=== PATIENT | female | born 1935 | race Two or more races ===

== ENCOUNTER 2016-09-24 10:33 | Inpatient (IN) | payer MEDICARE, OTHER ==
[2016-09-24] VITALS (7 sets, daily range): BP systolic 102–126; BP diastolic 43–75
[~2016-09-24] VITALS: Ht 162.6 cm; Wt 81.6 kg
[~2016-09-24 10:33] MED LIST: ACETAMINOPHEN120 MG ORAL; ALBUTEROL2.5 MG/3 M AD; LEVOFLOXACIN500 MG ORAL; MIRALAX17 G2 ORAL; MYLANTA II30 ML ORAL; PHENAZOPYRIDIN100 MG ORAL; PROTONIX40 MG ORAL; ZANTAC150 MG ORAL
[2016-09-24] MEDS ORDERED: Pantoprazole Inj IVP ONE (11:00)
[2016-09-24 11:18] LABS: BASOPHILS % (AUTO) 0.8 % (0.0-2.0); EOSINOPHILS % (AUTO) 0.1 % (0.0-3.0); LYMPHOCYTES % (AUTO) 12.9 % (20.0-45.0); MEAN CORPUSCULAR HEMOGLOBIN 24.2 PG (27.0-31.0); MEAN CORPUSCULAR HGB CONC 30.9 G/DL (32.0-36.0); MEAN CORPUSCULAR VOLUME 78 FL (80-99); MEAN PLATELET VOLUME 5.4 FL (6.5-10.1); MONOCYTES % (AUTO) 4.6 % (1.0-10.0); NEUTROPHILS % (AUTO) 81.6 % (45.0-75.0); PLATELET COUNT 522 K/UL (150-450); RED BLOOD COUNT 4.51 M/UL (4.20-5.40); RED CELL DISTRIBUTION WIDTH 16.7 % (11.6-14.8); WHITE BLOOD COUNT 17.1 K/UL (4.8-10.8)
--- NOTE | 2016-09-24 11:34 | Emergency Room Report ---
History of Present Illness General Chief Complaint: Vomiting Source: Patient, Family Member, Medical Record Present Illness HPI 81 YO F with known gastric ulcer? (scope 2-3 months ago) on PPI presents with alleged multiple episodes black emesis last night. Daughter states patient was vomiting dark substance. Tried to treat with OTC meds from pharmacy. No vomiting or coughing blood today. Denies diarrhea, abd pain, fever/chills. Patient has had URI symptoms recently. Patient currently asymptomatic, denies chest pain, SOB, abd pain, headache, urinary complaints. Allergies: Coded Allergies: PROCHLORPERAZINE (Verified Allergy, Severe, 02/20/16) Patient History Past Medical History: other - gastric ulcer Past Surgical History: none Pertinent Family History: none Social History: Denies: alcohol use, drug use, smoking Now: No Immunizations: UTD Reviewed Nursing Documentation: PMH: Agreed, PSxH: Agreed Nursing Documentation-PMH Hx Cardiac Problems: No Hx Hypertension: No Hx Pacemaker: No Hx Asthma: No Hx COPD: No Hx Diabetes: Yes Hx Cancer: No Hx Gastrointestinal Problems: Yes - pud Hx Dialysis: No History Of Psychiatric Problem: No Hx Neurological Problems: No Hx Cerebrovascular Accident: No Hx Seizures: No Review of Systems All Other Systems: negative except mentioned in HPI Physical Exam Vital Signs Date Time Temp Pulse Resp B/P Pulse Ox O2 Delivery O2 Flow Rate FiO2 09/24/16 10:34 98.1 98 16 104/70 98 Room Air Sp02 EP Interpretation: reviewed, normal General Appearance: normal inspection, well appearing, no apparent distress, alert, GCS 15, non-toxic Head: normocephalic, atraumatic Eyes: bilateral eye EOMI, bilateral eye PERRL ENT: normal ENT inspection, hearing grossly normal, normal voice Neck: normal inspection, full range of motion, supple, no bony tend Respiratory: normal inspection, chest non-tender, lungs clear, normal breath sounds, no rhonchi, no respiratory distress, no retraction, no accessory muscle use, no wheezing Cardiovascular #1: regular rate, rhythm, no edema Gastrointestinal: normal inspection, normal bowel sounds, non tender, soft, no guarding, no hernia, no rebound Genitourinary: no CVA tenderness Musculoskeletal: normal inspection, back normal, normal range of motion, Gris' s Sign negative Neurologic: normal inspection, alert, responsive, speech normal Psychiatric: normal inspection, judgement/insight normal, mood/affect normal Skin: normal inspection, normal color, no rash Procedures Critical Care Time Critical Care Time CC time 45 minutes Care for a 81 YO F with known gastric ulcer with ?upper GI bleed, black emesis yesterday DDx includes Perforation, gastric ulcer, PUD Patient is oriented, no active vomiting/coughing blood. VSS. Afebrile Comprehensive physical exam completed, atraumatic. Labs include CBC and chem panel, EKG 12 lead and constant cardiac rhythm strip monitoring, IV established wide bore, Coags, T&S, IV protononix Airway adequately maintained by patient upon arrival. EKG reveals NSR without QRS abnormalities. Physician spent 45 minutes of direct critical care time monitoring patient's respiratory, cardiac and neurological status, reassessment, review of imaging, labs and discussion with attending hospitalist, possible GI consult Does not include procedures Medical Decision Making Medicare Attestation I Amparo Wise MD hereby attest that the medical record entry for date of service, 08/10/16 accurately reflects signatures/notations that I made in my capacity as MD when I treated/diagnosed the above listed Medicare beneficiary. I attest that this information is true, accurate and complete to the best of my knowledge. I understand that any falsification, omission, or concealment of material fact may subject me to administrative, civil, or criminal liability. This patient warrants hospital admission for extreme of age and has a condition that cannot be treated as outpatient. Diagnostic Impression: Primary Impression: Coffee ground emesis Additional Impressions: UTI (urinary tract infection) Qualified Codes: N30.01 - Acute cystitis with hematuria Leukocytosis Qualified Codes: D72.829 - Elevated white blood cell count, unspecified ER Course 81 YO F with alleged coffee ground emesis last night, known gastric ulcer. VSS. Afebrile. No focal abd ttp in ED Labs: Elevated Leuks. H&H stable. UA + for UTI. No RAQUEL. Mild hypoK CXR: no PNA or acute abnormality A: 1) Upper GI bleed. No active bleeding now. H&H stable. IV protonix given. No history of ETOH or liver disease. Will likely need endoscopy although not urgent 2) Leuks, UTI. Tx with Zosyn for possible UTI Endorsed to Dr Strickland at 147pm for tele admission. EKG Diagnostic Results Rate: normal, other - arrythmia Rhythm: NSR ST Segments: no acute changes Rhythm Strip Diag. Results EP Interpretation: yes Rate: 96 Rhythm: NSR, no PVC's, no ectopy Chest X-Ray Diagnostic Results EP Interpretation: Yes Findings: no consolidation, no effusion, no pneumothorax, no acute cardiopulmonary disease Number of Views: 1 Last Vital Signs Date Time Temp Pulse Resp B/P Pulse Ox O2 Delivery O2 Flow Rate FiO2 09/24/16 10:34 98.1 98 16 104/70 98 Room Air Status: improved Disposition: ADMITTED INPATIENT Condition: Critical AMPARO WISE M.D. Sep 24, 2016 11:34
[2016-09-24 11:37] LABS: TROPONIN I < 0.30 ng/mL (<=0.30)
[2016-09-24 11:39] LABS: ALANINE AMINOTRANSFERASE 11 U/L (3-33); ALBUMIN/GLOBULIN RATIO 0.9 (1.0-2.7); ANION GAP 18 (5-15); ASPARTATE AMINO TRANSFERASE 16 U/L (5-40); CALCIUM 8.9 mg/dL (8.6-10.2); CARBON DIOXIDE 28 mEQ/L (20-30); CHLORIDE 86 mEQ/L (98-107); CREATININE 0.7 mg/dL (0.5-0.9); HEMOLYSIS 4; LIPASE 24 U/L (< 60); POTASSIUM 3.3 mEQ/L (3.4-4.9); SODIUM 132 mEQ/L (135-145); TOTAL PROTEIN 7.5 g/dL (6.6-8.7)
[2016-09-24] MEDS ORDERED: ZYRTEC10 MG ORAL (11:41)
[2016-09-24] MEDS ORDERED: GABAPENTIN600 MG ORAL (11:41)
[2016-09-24] MEDS ORDERED: HYDROXYZINE HCL10 M1 PO (11:41)
[2016-09-24] MEDS ORDERED: ASPIRIN81 MG ORAL (11:41)
[2016-09-24] MEDS ORDERED: PROCHLORPERAZINE5 MG ORAL (11:41)
[2016-09-24] MEDS ORDERED: CARAFATE1 G1 ORAL (11:41)
[2016-09-24] MEDS ORDERED: MUCINEX100 MG PO (11:41)
[2016-09-24] MEDS ORDERED: Piperacillin/Tazobactam 3.375 GM in NS 110 ML IVPB ONE (12:30)
[2016-09-24] MEDS ORDERED: Zosyn 3.375gm inj ONE (12:40)
[2016-09-24 12:43] LABS: APPEARANCE,URINE SLIGHTLY CLOUDY; KETONES,URINE NEGATIVE (NEGATIVE); LEUKOCYTE ESTERASE ,URINE 3+ (NEGATIVE); NITRITE,URINE NEGATIVE (NEGATIVE); PH,URINE 7 (4.5-8.0); PROTEIN,URINE 2+ (NEGATIVE); UROBILINOGEN,URINE NORMAL MG/DL (0.0-1.0)
[2016-09-24 13:02] LABS: INR 1.1 (0.9-1.1)
[2016-09-24 13:03] LABS: BACTERIA,URINE FEW /HPF; SQUAMOUS EPITHELIAL CELL,UR MODERATE /LPF (NONE/OCC)
--- NOTE | 2016-09-24 13:28 | Diagnostic Imaging Report ---
Indication: Chest Pain Comparison: 02/20/16 A single view chest radiograph was obtained. Findings: Heart is enlarged. Lungs are essentially clear. No infiltrate seen. Bones are osteopenic. Impression: Cardiomegaly. Stable appearance
[2016-09-24] MEDS ORDERED: D5 1/2NS 1,000 ML IV SCH (17:40)
[2016-09-24] MEDS ORDERED: Nitroglycerin Subl 0.4mg tab (Bottle Of 25) SL PRN (23:45)
[2016-09-24] MEDS ORDERED: Miralax 17gm pkt ORAL PRN (23:45)
[2016-09-24] MEDS ORDERED: Mylanta II UD 30ml ORAL PRN (23:45)
--- NOTE | 2016-09-24 23:49 | History and Physical ---
History of Present Illness General Reason for Hospitalization: Vomiting Present Illness HPI 81 year old bedbound, with hx of gastritis, presented with cc of vomiting blood on the day of admission. Patient had recent endoscopy showing showing gastric ulcer. But now she started vomiting blood. Allergies: Coded Allergies: PROCHLORPERAZINE (Verified Allergy, Severe, 02/20/16) Medication History Scheduled Aspirin* (Aspirin*), 81 MG ORAL DAILY, (Reported) Cetirizine Hcl* (Zyrtec*), 10 MG ORAL DAILY, (Reported) Gabapentin* (Gabapentin*), 600 MG ORAL DAILY, (Reported) Levofloxacin (Levofloxacin*), 500 MG ORAL DAILY, (Reported) Pantoprazole* (Protonix*), 40 MG ORAL DAILY Phenazopyridine Hcl* (Pyridium*), 100 MG ORAL THREE TIMES A DAY, (Reported) Prochlorperazine Maleate* (Compazine*), 5 MG ORAL Q6H, (Reported) Ranitidine Hcl* (Zantac*), 150 MG ORAL DAILY, (Reported) Sucralfate* (Carafate*), 1 GM ORAL FOUR TIMES A DAY, (Reported) Scheduled PRN Acetaminophen* (Tylenol*), 200 MG ORAL DAILY PRN for Mild Pain/Temp > 100.5, ( Reported) Al Hydroxide/mg Hydroxide (Mag-Al Plus Suspension), 30 ML ORAL Q6H PRN for dyspepsia Albuterol Sulfate* (Albuterol Sulfate Hhn*), 3 ML AD Q4H PRN for Shortness of Breath, (Reported) Polyethylene Glycol 3350* (Miralax*), 17 GM ORAL HSPRN PRN for Constipation Miscellaneous Medications Guaifenesin (Mucinex), Unknown Dose PO, (Reported) Hydroxyzine Hcl (Hydroxyzine Hcl), 10 MG PO, (Reported) Patient History Healthcare decision maker Resuscitation status Advanced Directive on File No Past Medical/Surgical History Past Medical/Surgical History: (1) GERD (gastroesophageal reflux disease) (2) Diverticulosis Review of Systems All Other Systems: negative except mentioned in HPI Physical Exam Lines, tubes and drains: peripheral HEENT: normocephalic, atraumatic Respiratory/Chest: chest wall non-tender, lungs clear Cardiovascular/Chest: normal peripheral pulses, normal rate Abdomen: normal bowel sounds Genitourinary/Rectal: normal genital exam Last 24 Hour Vital Signs Date Time Temp Pulse Resp B/P Pulse Ox O2 Delivery O2 Flow Rate FiO2 09/24/16 22:19 97.9 104 20 124/45 96 Room Air 09/24/16 21:31 98.8 91 20 123/59 97 Room Air 09/24/16 21:17 98.8 91 20 123/59 97 Room Air 09/24/16 19:10 99 18 120/55 100 Room Air 09/24/16 17:48 102 18 126/43 100 Room Air 09/24/16 15:11 102 14 102/75 98 Room Air 09/24/16 12:55 98.9 101 14 118/63 95 Room Air 09/24/16 11:32 98.1 97 22 102/57 99 Room Air 09/24/16 10:34 98.1 98 16 104/70 98 Room Air Laboratory Tests Test 09/24/16 10:35 09/24/16 12:25 09/24/16 12:44 White Blood Count 17.1 K/UL (4.8-10.8) H Red Blood Count 4.51 M/UL (4.20-5.40) Hemoglobin 10.9 G/DL (12.0-16.0) L Hematocrit 35.3 % (37.0-47.0) L Mean Corpuscular Volume 78 FL (80-99) L Mean Corpuscular Hemoglobin 24.2 PG (27.0-31.0) L Mean Corpuscular Hemoglobin Concent 30.9 G/DL (32.0-36.0) L Red Cell Distribution Width 16.7 % (11.6-14.8) H Platelet Count 522 K/UL (150-450) H Mean Platelet Volume 5.4 FL (6.5-10.1) L Neutrophils (%) (Auto) 81.6 % (45.0-75.0) H Lymphocytes (%) (Auto) 12.9 % (20.0-45.0) L Monocytes (%) (Auto) 4.6 % (1.0-10.0) Eosinophils (%) (Auto) 0.1 % (0.0-3.0) Basophils (%) (Auto) 0.8 % (0.0-2.0) Sodium Level 132 mEQ/L (135-145) L Potassium Level 3.3 mEQ/L (3.4-4.9) L Chloride Level 86 mEQ/L (98-107) L Carbon Dioxide Level 28 mEQ/L (20-30) Anion Gap 18 (5-15) H Blood Urea Nitrogen 21 mg/dL (7-23) Creatinine 0.7 mg/dL (0.5-0.9) Estimat Glomerular Filtration Rate mL/min (>60) Glucose Level 175 mg/dL (74-106) H Calcium Level 8.9 mg/dL (8.6-10.2) Total Bilirubin 0.4 mg/dL (0.0-1.2) Aspartate Amino Transf (AST/SGOT) 16 U/L (5-40) Alanine Aminotransferase (ALT/SGPT) 11 U/L (3-33) Alkaline Phosphatase 88 U/L (35-104) Troponin I < 0.30 ng/mL (<=0.30) Total Protein 7.5 g/dL (6.6-8.7) Albumin 3.7 g/dL (3.5-5.2) Globulin 3.8 g/dL Albumin/Globulin Ratio 0.9 (1.0-2.7) L Lipase 24 U/L (< 60) Urine Color Yellow Urine Appearance Slightly cloudy Urine pH 7 (4.5-8.0) Urine Specific [place] 1.005 (1.005-1.035) Urine Protein 2+ (NEGATIVE) H Urine Glucose (UA) 2+ (NEGATIVE) H Urine Ketones Negative (NEGATIVE) Urine Occult Blood 1+ (NEGATIVE) H Urine Nitrite Negative (NEGATIVE) Urine Bilirubin Negative (NEGATIVE) Urine Urobilinogen Normal MG/DL (0.0-1.0) Urine Leukocyte Esterase 3+ (NEGATIVE) H Urine RBC 2-4 /HPF (0 - 2) H Urine WBC 5-10 /HPF (0 - 2) H Urine Squamous Epithelial Cells Moderate /LPF (NONE/OCC) H Urine Bacteria Few /HPF (NONE) Prothrombin Time 11.0 SEC (9.30-11.50) Prothromb Time International Ratio 1.1 (0.9-1.1) Activated Partial Thromboplast Time 27 SEC (23-33) Height (Feet): 5 Height (Inches): 4.00 Weight (Pounds): 180 Medications Current Medications Medications (Trade) Dose Ordered Sig/Leroy Route PRN Reason Start Time Stop Time Status Last Admin Dose Admin Acetaminophen (Tylenol) 650 mg Q4H PRN ORAL fever 09/24/16 23:45 10/24/16 23:44 UNV Al Hydroxide/Mg Hydroxide (Mylanta II) 30 ml Q6H PRN ORAL dyspepsia 09/24/16 23:45 10/24/16 23:44 UNV Dextrose (Dextrose 50%) STAT PRN IV Hypoglycemia 09/24/16 23:45 10/24/16 23:44 UNV Dextrose/Sodium Chloride (D5 0.45% NS) 1,000 ml @ 75 mls/hr [id number] IV 09/24/16 17:40 10/24/16 17:39 UNV Diphenhydramine HCl (Benadryl) 25 mg Q6H PRN ORAL Itching/Pruritis 09/24/16 23:45 10/24/16 23:44 UNV Gabapentin 600 mg 600 mg DAILY ORAL 09/25/16 09:00 10/25/16 08:59 UNV Morphine Sulfate (Morphine Sulfate) 2 mg EVERY 4 HOURS PRN IVP severe Pain (Pain Scale 7-10) 09/24/16 23:45 10/01/16 23:44 UNV Nitroglycerin (Ntg) 0.4 mg Q5M X 3 DOSES PRN SL Prn Chest Pain 09/24/16 23:45 10/24/16 23:44 UNV Ondansetron HCl (Zofran) 4 mg Q6H PRN IVP Nausea & Vomiting 09/24/16 23:45 10/24/16 23:44 UNV Polyethylene Glycol (Miralax) 17 gm HSPRN PRN ORAL Constipation 09/24/16 23:45 10/24/16 23:44 UNV Temazepam (Restoril) 15 mg HSPRN PRN ORAL Insomnia 09/24/16 23:45 10/01/16 23:44 UNV Assessment/Plan Problem List: (1) Coffee ground emesis ICD Codes: K92.0 - Hematemesis SNOMED: 02581442 (2) UTI (urinary tract infection) ICD Codes: N39.0 - Urinary tract infection, site not specified SNOMED: 46027196, 463744026 Qualifiers: Qualified Codes: N30.01 - Acute cystitis with hematuria (3) Leukocytosis ICD Codes: D72.829 - Elevated white blood cell count, unspecified SNOMED: 030104183, 719022590 Qualifiers: Qualified Codes: D72.829 - Elevated white blood cell count, unspecified (4) Hiatal hernia ICD Codes: K44.9 - Diaphragmatic hernia without obstruction or gangrene SNOMED: 00787140 (5) GERD (gastroesophageal reflux disease) ICD Codes: K21.9 - Gastro-esophageal reflux disease without esophagitis SNOMED: 534609391 Assessment/Plan NPO IV fluids check H/h f/u coagulation check urine cultures telemetry for now. TERRANCE LLOYD Sep 24, 2016 23:49
[2016-09-25] VITALS (8 sets, daily range): BP systolic 102–134; BP diastolic 42–66
[2016-09-25 07:57] LABS: BASOPHILS % (AUTO) 0.9 % (0.0-2.0); EOSINOPHILS % (AUTO) 0.6 % (0.0-3.0); LYMPHOCYTES % (AUTO) 17.6 % (20.0-45.0); MEAN CORPUSCULAR HEMOGLOBIN 24.4 PG (27.0-31.0); MEAN CORPUSCULAR VOLUME 78 FL (80-99); MONOCYTES % (AUTO) 7.8 % (1.0-10.0); NEUTROPHILS % (AUTO) 73.1 % (45.0-75.0); PLATELET COUNT 422 K/UL (150-450); RED BLOOD COUNT 3.28 M/UL (4.20-5.40); WHITE BLOOD COUNT 11.6 K/UL (4.8-10.8)
[2016-09-25 08:06] LABS: ALANINE AMINOTRANSFERASE 9 U/L (3-33); ALBUMIN/GLOBULIN RATIO 0.9 (1.0-2.7); AMYLASE 41 U/L (10-110); ANION GAP 11 (5-15); ASPARTATE AMINO TRANSFERASE 14 U/L (5-40); CALCIUM 8.2 mg/dL (8.6-10.2); CARBON DIOXIDE 30 mEQ/L (20-30); CHLORIDE 97 mEQ/L (98-107); CREATININE 0.5 mg/dL (0.5-0.9); HEMOLYSIS 0; LIPASE 32 U/L (< 60); POTASSIUM 3.6 mEQ/L (3.4-4.9); SODIUM 138 mEQ/L (135-145); TOTAL PROTEIN 5.8 g/dL (6.6-8.7)
[2016-09-25 08:18] LABS: INR 1.1 (0.9-1.1); PROTHROMBIN TIME 11.3 SEC (9.30-11.50)
[2016-09-25] MEDS: Pantoprazole Inj IVP SCH ×2 (09:34→22:54)
--- NOTE | 2016-09-25 09:52 | Pre-Procedure Note/Attestation ---
Pre-Procedure Note/Attestation Complete Prior to Procedure Planned Procedure: not applicable Procedure Narrative: egd Indications for Procedure Pre-Operative Diagnosis: UGIB Attestation I attest that I discussed the nature of the procedure; its benefits; risks and complications; and alternatives (and the risks and benefits of such alternatives ), prior to the procedure, with the patient (or the patient's legal corporate representative). I attest that, if there was a reasonable possibility of needing a blood transfusion, the patient (or the patient's legal corporate representative) was given the [facility] standardized written summary, pursuant to the Nakul Dionicio Blood Safety Act ([place] Health and Safety Code # 1645, as amended). I attest that I re-evaluated the patient just prior to the surgery and that there has been no change in the patient's H&P, except as documented below: AURELIA CHATTERJEE Sep 25, 2016 09:52
[2016-09-25] MEDS ORDERED: NS 550ML IV ONE (10:20)
[2016-09-25] MEDS ORDERED: NS Irrig 1000ml ONE (10:30)
[2016-09-25] MEDS ORDERED: Propofol 10mg/ml 20ml IV ONE (10:30)
--- NOTE | 2016-09-25 10:45 | Anethesia Preoperative Eval ---
Anesthesia Pre-op PMH/ROS General Date of Evaluation: Sep 25, 2016 Time of Evaluation: 10:20 Anesthesiologist: queta ASA Score: ASA 3 Mallampati Score Class I : Soft palate, uvula, fauces, pillars visible Class II: Soft palate, uvula, fauces visible Class III: Soft palate, base of uvula visible Class IV: Only hard plate visible Mallampati Classification: Class II Surgeon: evelyn Diagnosis: GI bleed Surgical Procedure: egd Anesthesia History: none Allergies: Coded Allergies: PROCHLORPERAZINE (Verified Allergy, Severe, 02/20/16) Past Medical History Endocrine: Reports: DM HEENT: Reports: glaucoma Musculoskeletal/Integumentary: Reports: other - l. hip arthroplasty, contractures r. hand Anesthesia Pre-op Phys. Exam Physician Exam Last Vital Signs Date Time Temp Pulse Resp B/P Pulse Ox O2 Delivery O2 Flow Rate FiO2 09/25/16 08:00 77 09/25/16 07:56 98.1 18 103/52 97 Room Air Airway Exam Mallampati Score: Class II Teeth: missing Anesthesia Pre-op A/P Labs Hematology Test 09/24/16 10:35 09/25/16 06:20 White Blood Count 17.1 K/UL (4.8-10.8) H 11.6 K/UL (4.8-10.8) H Red Blood Count 4.51 M/UL (4.20-5.40) 3.28 M/UL (4.20-5.40) L Hemoglobin 10.9 G/DL (12.0-16.0) L 8.0 G/DL (12.0-16.0) L Hematocrit 35.3 % (37.0-47.0) L 25.7 % (37.0-47.0) L Mean Corpuscular Volume 78 FL (80-99) L 78 FL (80-99) L Mean Corpuscular Hemoglobin 24.2 PG (27.0-31.0) L 24.4 PG (27.0-31.0) L Mean Corpuscular Hemoglobin Concent 30.9 G/DL (32.0-36.0) L 31.0 G/DL (32.0-36.0) L Red Cell Distribution Width 16.7 % (11.6-14.8) H 17.0 % (11.6-14.8) H Platelet Count 522 K/UL (150-450) H 422 K/UL (150-450) Mean Platelet Volume 5.4 FL (6.5-10.1) L 6.0 FL (6.5-10.1) L Neutrophils (%) (Auto) 81.6 % (45.0-75.0) H 73.1 % (45.0-75.0) Lymphocytes (%) (Auto) 12.9 % (20.0-45.0) L 17.6 % (20.0-45.0) L Monocytes (%) (Auto) 4.6 % (1.0-10.0) 7.8 % (1.0-10.0) Eosinophils (%) (Auto) 0.1 % (0.0-3.0) 0.6 % (0.0-3.0) Basophils (%) (Auto) 0.8 % (0.0-2.0) 0.9 % (0.0-2.0) Coagulation Test 09/24/16 12:44 09/25/16 06:20 Prothrombin Time 11.0 SEC (9.30-11.50) 11.3 SEC (9.30-11.50) Prothromb Time International Ratio 1.1 (0.9-1.1) 1.1 (0.9-1.1) Activated Partial Thromboplast Time 27 SEC (23-33) 28 SEC (23-33) Chemistry Test 09/24/16 10:35 09/25/16 06:20 Sodium Level 132 mEQ/L (135-145) L 138 mEQ/L (135-145) Potassium Level 3.3 mEQ/L (3.4-4.9) L 3.6 mEQ/L (3.4-4.9) Chloride Level 86 mEQ/L (98-107) L 97 mEQ/L (98-107) L Carbon Dioxide Level 28 mEQ/L (20-30) 30 mEQ/L (20-30) Anion Gap 18 (5-15) H 11 (5-15) Blood Urea Nitrogen 21 mg/dL (7-23) 16 mg/dL (7-23) Creatinine 0.7 mg/dL (0.5-0.9) 0.5 mg/dL (0.5-0.9) Estimat Glomerular Filtration Rate mL/min (>60) mL/min (>60) Glucose Level 175 mg/dL (74-106) H 130 mg/dL (74-106) H Calcium Level 8.9 mg/dL (8.6-10.2) 8.2 mg/dL (8.6-10.2) L Total Bilirubin 0.4 mg/dL (0.0-1.2) 0.3 mg/dL (0.0-1.2) Aspartate Amino Transf (AST/SGOT) 16 U/L (5-40) 14 U/L (5-40) Alanine Aminotransferase (ALT/SGPT) 11 U/L (3-33) 9 U/L (3-33) Alkaline Phosphatase 88 U/L (35-104) 77 U/L (35-104) Troponin I < 0.30 ng/mL (<=0.30) Total Protein 7.5 g/dL (6.6-8.7) 5.8 g/dL (6.6-8.7) L Albumin 3.7 g/dL (3.5-5.2) 2.8 g/dL (3.5-5.2) L Globulin 3.8 g/dL 3.0 g/dL Albumin/Globulin Ratio 0.9 (1.0-2.7) L 0.9 (1.0-2.7) L Lipase 24 U/L (< 60) 32 U/L (< 60) Amylase Level 41 U/L (10-110) Risk Assessment & Plan Plan: propofol Status Change Before Surgery: Nic Manjarrez MD Sep 25, 2016 10:45
--- NOTE | 2016-09-25 10:47 | Immediate Post-Op Evaluation ---
Immediate Post-Op Evalulation Immediate Post-Op Evalulation Date of Evaluation: Sep 25, 2016 Time of Evaluation: 11:00 IV Fluids: 300 Blood Pressure Systolic: 127 Blood Pressure Diastolic: 75 Pulse Rate: 76 Respiratory Rate: 20 O2 Sat by Pulse Oximetry: 100 Temperature (Fahrenheit): 97.3 Pain Score (1-10): 0 Nausea: No Vomiting: No Complications none Patient Status: awake, patent, none Hydration Status: adequate Nic Venegas MD Sep 25, 2016 10:47
--- NOTE | 2016-09-25 10:48 | 48 Hour Post Anesthesia Eval ---
Post Anesthesia Evaluation Date of Evaluation: Sep 25, 2016 Time of Evaluation: 11:10 Blood Pressure Systolic: 110 0: 60 Pulse Rate: 81 Respiratory Rate: 19 Temperature (Fahrenheit): 97.1 O2 Sat by Pulse Oximetry: 99 Airway: patent Nausea: No Vomiting: No Pain Intensity: 0 Hydration Status: adequate Cardiopulmonary Status: stable Mental Status/LOC: patient returned to baseline Follow-up Care/Observations: n/a Post-Anesthesia Complications: tolerated well Follow-up care needed: N/A Nic Venegas MD Sep 25, 2016 10:48
--- NOTE | 2016-09-25 10:51 | Endoscopy Procedure Note ---
Endoscopy Procedure Note Indication for Procedure: gib Procedures Performed: EGD Operative Findings/Diagnosis: esophagitis Specimen: yes Pt Tolerated Procedure Well: Yes Estimated Blood Loss: none Anesthesiologist: queta Anesthesia: MAC Implant(s) used?: No 50 yrs or older w/o bx or poly: Not Applicable 10yrs. F/U not recommended: Not Applicable AURELIA CHATTERJEE Sep 25, 2016 10:51
[2016-09-25] MEDS: Morphine Sulfate 2mg/ml Inj IVP PRN ×3 (12:21→22:54)
--- NOTE | 2016-09-25 15:10 | Pulmonology Progress Note ---
Assessment/Plan Problems: (1) Coffee ground emesis (2) UTI (urinary tract infection) (3) Leukocytosis (4) Hiatal hernia (5) GERD (gastroesophageal reflux disease) Assessment/Plan h/h dropping, transfuse prbc endoscopy results reviewed with Dr. Eugene geiger [facility] check urine cultures. Subjective ROS Limited/Unobtainable: No Constitutional: Reports: no symptoms HEENT: Repors: no symptoms Respiratory: Reports: no symptoms Cardiovascular: Reports: no symptoms Allergies: Coded Allergies: PROCHLORPERAZINE (Verified Allergy, Severe, 02/20/16) Objective Last 24 Hour Vital Signs Date Time Temp Pulse Resp B/P Pulse Ox O2 Delivery O2 Flow Rate FiO2 09/25/16 12:01 81 19 99 09/25/16 11:07 97.4 81 19 110/62 99 Nasal Cannula 3.0 09/25/16 11:00 80 20 115/65 99 Nasal Cannula 3.0 09/25/16 10:59 76 20 100 09/25/16 10:55 97.3 82 17 118/66 98 Nasal Cannula 3.0 09/25/16 08:00 77 09/25/16 07:56 98.1 82 18 103/52 97 Room Air 09/25/16 04:10 98.6 87 20 102/42 95 Room Air 09/25/16 03:59 92 09/25/16 01:07 98.8 96 20 127/53 95 Room Air 09/25/16 00:04 93 09/24/16 22:19 97.9 104 20 124/45 96 Room Air 09/24/16 21:31 98.8 91 20 123/59 97 Room Air 09/24/16 21:17 98.8 91 20 123/59 97 Room Air 09/24/16 19:10 99 18 120/55 100 Room Air 09/24/16 17:48 102 18 126/43 100 Room Air 09/24/16 15:11 102 14 102/75 98 Room Air Intake and Output 09/24/16 09/25/16 19:00 07:00 Intake Total 0 ml 525 ml Balance 0 ml 525 ml Intake Oral 0 ml IV Total 525 ml # Bowel Movements 2 General Appearance: WD/WN HEENT: normocephalic, atraumatic Respiratory/Chest: chest wall non-tender, normal breath sounds Cardiovascular: normal peripheral pulses, normal rate Abdomen: normal bowel sounds, soft, non tender Skin: no rash Neurologic/Psychiatric: no motor/sensory deficits Laboratory Tests 09/25/16 06:20: White Blood Count 11.6H, Red Blood Count 3.28L, Hemoglobin 8.0L, Hematocrit 25.7L, Mean Corpuscular Volume 78L, Mean Corpuscular Hemoglobin 24.4L, Mean Corpuscular Hemoglobin Concent 31.0L, Red Cell Distribution Width 17.0H, Platelet Count 422, Mean Platelet Volume 6.0L, Neutrophils (%) (Auto) 73.1, Lymphocytes (%) (Auto) 17.6L, Monocytes (%) (Auto) 7.8, Eosinophils (%) (Auto) 0.6, Basophils (%) (Auto) 0.9, Prothrombin Time 11.3, Prothromb Time International Ratio 1.1, Activated Partial Thromboplast Time 28, Sodium Level 138, Potassium Level 3.6, Chloride Level 97L, Carbon Dioxide Level 30, Anion Gap 11, Blood Urea Nitrogen 16, Creatinine 0.5, Estimat Glomerular Filtration Rate , Glucose Level 130H, Calcium Level 8.2L, Total Bilirubin 0.3, Aspartate Amino Transf (AST/SGOT) 14, Alanine Aminotransferase (ALT/SGPT) 9, Alkaline Phosphatase 77, Total Protein 5.8L, Albumin 2.8L, Globulin 3.0, Albumin/ Globulin Ratio 0.9L, Amylase Level 41, Lipase 32 Current Medications Medications (Trade) Dose Ordered Sig/Leroy Route PRN Reason Start Time Stop Time Status Last Admin Dose Admin Acetaminophen (Tylenol) 650 mg Q4H PRN ORAL fever 09/24/16 23:45 10/24/16 23:44 Al Hydroxide/Mg Hydroxide (Mylanta II) 30 ml Q6H PRN ORAL dyspepsia 09/24/16 23:45 10/24/16 23:44 Dextrose (Dextrose 50%) STAT PRN IV Hypoglycemia 09/24/16 23:45 10/24/16 23:44 Dextrose/ Electrolytes (D5NS W/KCl 20meq 1000ml) 1,000 ml @ 75 mls/hr [id number] IV 09/25/16 01:00 10/25/16 00:59 09/25/16 04:20 Diphenhydramine HCl (Benadryl) 25 mg Q6H PRN ORAL Itching/Pruritis 09/24/16 23:45 10/24/16 23:44 09/25/16 12:21 Morphine Sulfate (Morphine Sulfate) 2 mg Q4H PRN IVP severe Pain (Pain Scale 7-10) 09/24/16 23:45 10/01/16 23:44 09/25/16 12:21 Nitroglycerin (Ntg) 0.4 mg Q5M X 3 DOSES PRN SL Prn Chest Pain 09/24/16 23:45 10/24/16 23:44 Ondansetron HCl (Zofran) 4 mg Q6H PRN IVP Nausea & Vomiting 09/24/16 23:45 10/24/16 23:44 Pantoprazole 40 mg 40 mg EVERY 12 HOURS IVP 09/25/16 09:00 10/25/16 08:59 09/25/16 09:34 Polyethylene Glycol (Miralax) 17 gm HSPRN PRN ORAL Constipation 09/24/16 23:45 10/24/16 23:44 Temazepam (Restoril) 15 mg HSPRN PRN ORAL Insomnia 09/24/16 23:45 10/01/16 23:44 TERRANCE LLOYD Sep 25, 2016 15:10
--- NOTE | 2016-09-25 18:37 | Procedure Note ---
DATE OF PROCEDURE: 09/25/2016 SURGEON: Shaun Quesada M.D. PROCEDURE: Upper endoscopy with biopsy. ANESTHESIOLOGIST: Nic Venegas M.D. INSTRUMENT: Olympus adult flexible upper endoscope. INDICATION: Upper gastrointestinal bleeding. REASON FOR PROCEDURE: The procedure, risks, benefits, and possible consequences, including hemorrhage, aspiration, perforation and infection, and alternative treatments, were explained to the patient/legal guardian by Dr. Shaun Quesada and the patient/legal guardian understood and accepted these risks. DESCRIPTION OF PROCEDURE: After informed consent was obtained and the patient was adequately sedated, Olympus upper endoscope was advanced from mouth into the second portion of the duodenum and retroflexion was performed in the stomach. The patient has evidence of distal esophagitis. Biopsies from distal esophagus was obtained. In the stomach, there was diffuse gastritis. No obvious ulceration or obvious upper gastrointestinal bleeding. The patient tolerated the procedure without any complication. SUMMARY OF FINDINGS: Distal esophagitis status post biopsy. Otherwise, basically normal upper endoscopy examination. RECOMMENDATIONS: Follow up biopsies and treat accordingly. I want to thank, Dr. Strickland, for this kind referral. Shaun Quesada M.D. DR: VARUN JOB#: [id number] CC: Roberto Strickland M.D.
[2016-09-26] VITALS (7 sets, daily range): BP systolic 110–145; BP diastolic 43–76
[2016-09-26] MEDS: Morphine Sulfate 2mg/ml Inj IVP PRN ×2 (05:02→20:15)
--- NOTE | 2016-09-26 07:25 | Pulmonology Progress Note ---
Assessment/Plan Assessment/Plan ASSESSMENT upper GI bleeding pyuria, possible UTI anemia s/p EGD esophagitis , s/p bx PLAN OF CARE IVF s/p EGD with findings of esophagitis, biopsy results pending GI follows monitor HH , trending down patient declined blood transfusion GI prophylaxis advance diet as tolerated antiemetic prn per GI colonoscopy on Wednesday CXR negative O2 HHN prn case discussed and evaluated by supervising physician Subjective Allergies: Coded Allergies: PROCHLORPERAZINE (Verified Allergy, Severe, 02/20/16) Subjective afebrile, leukocytosis resolved HH trending down no SOB, no signs of respiratory distress Objective Last 24 Hour Vital Signs Date Time Temp Pulse Resp B/P Pulse Ox O2 Delivery O2 Flow Rate FiO2 09/26/16 04:00 98.0 76 20 117/56 98 Room Air 09/26/16 04:00 82 09/26/16 00:00 98.2 84 20 122/58 96 Room Air 09/26/16 00:00 84 09/25/16 23:24 97.5 09/25/16 20:00 82 09/25/16 20:00 97.5 83 18 134/56 98 Room Air 09/25/16 16:00 98.6 84 16 119/55 98 Room Air 09/25/16 16:00 79 09/25/16 12:01 81 19 99 09/25/16 11:07 97.4 81 19 110/62 99 Nasal Cannula 3.0 09/25/16 11:00 80 20 115/65 99 Nasal Cannula 3.0 09/25/16 10:59 76 20 100 09/25/16 10:55 97.3 82 17 118/66 98 Nasal Cannula 3.0 09/25/16 08:00 77 09/25/16 07:56 98.1 82 18 103/52 97 Room Air Intake and Output 09/25/16 09/26/16 19:00 07:00 Intake Total 1050 ml 613 ml Output Total 0 ml Balance 1050 ml 613 ml Intake Oral 250 ml 240 ml IV Total 800 ml 373 ml Output Estimated Blood Loss 0 ml # Voids 4 General Appearance: no acute distress HEENT: normocephalic, atraumatic, anicteric, mucous membranes moist Respiratory/Chest: lungs clear, no respiratory distress, no accessory muscle use Cardiovascular: normal rate, no gallop/murmur, no JVD Abdomen: normal bowel sounds, soft, non tender, non distended Genitourinary: normal external genitalia Extremities: no edema, pedal pulses normal Neurologic/Psychiatric: no motor/sensory deficits, alert, responsive, normal mood/affect Current Medications Medications (Trade) Dose Ordered Sig/Leroy Route PRN Reason Start Time Stop Time Status Last Admin Dose Admin Acetaminophen (Tylenol) 650 mg Q4H PRN ORAL fever 09/24/16 23:45 10/24/16 23:44 Al Hydroxide/Mg Hydroxide (Mylanta II) 30 ml Q6H PRN ORAL dyspepsia 09/24/16 23:45 10/24/16 23:44 Dextrose (Dextrose 50%) STAT PRN IV Hypoglycemia 09/24/16 23:45 10/24/16 23:44 Dextrose/ Electrolytes (D5NS W/KCl 20meq 1000ml) 1,000 ml @ 75 mls/hr [id number] IV 09/25/16 01:00 10/25/16 00:59 09/26/16 03:50 Diphenhydramine HCl (Benadryl) 25 mg Q6H PRN ORAL Itching/Pruritis 09/24/16 23:45 10/24/16 23:44 09/25/16 12:21 Morphine Sulfate (Morphine Sulfate) 2 mg Q4H PRN IVP severe Pain (Pain Scale 7-10) 09/24/16 23:45 10/01/16 23:44 09/26/16 05:02 Nitroglycerin (Ntg) 0.4 mg Q5M X 3 DOSES PRN SL Prn Chest Pain 09/24/16 23:45 10/24/16 23:44 Ondansetron HCl (Zofran) 4 mg Q6H PRN IVP Nausea & Vomiting 09/24/16 23:45 10/24/16 23:44 Pantoprazole 40 mg 40 mg EVERY 12 HOURS IVP 09/25/16 09:00 10/25/16 08:59 09/25/16 22:54 Polyethylene Glycol (Miralax) 17 gm HSPRN PRN ORAL Constipation 09/24/16 23:45 10/24/16 23:44 Temazepam (Restoril) 15 mg HSPRN PRN ORAL Insomnia 09/24/16 23:45 10/01/16 23:44 09/26/16 00:58 Pratik ([facility])Jessi NP Sep 26, 2016 07:25
[2016-09-26] MEDS ORDERED: DuoNeb 0.5-3(2.5)mg/3ml neb HHN PRN (07:30)
--- NOTE | 2016-09-26 08:07 | General Progress Note ---
Assessment/Plan Problem List: (1) Hiatal hernia ICD Codes: K44.9 - Diaphragmatic hernia without obstruction or gangrene SNOMED: 49350356 (2) GERD (gastroesophageal reflux disease) ICD Codes: K21.9 - Gastro-esophageal reflux disease without esophagitis SNOMED: 191807131 (3) Diverticulosis ICD Codes: K57.90 - Diverticulosis of intestine, part unspecified, without perforation or abscess without bleeding SNOMED: 076991137 (4) Esophagitis ICD Codes: K20.9 - Esophagitis, unspecified SNOMED: 48485165 Assessment/Plan ppi fu H&H reflux meaures fu biopsy results +/- colonoscopy on Wednesday if needed Subjective ROS Limited/Unobtainable: Yes Allergies: Coded Allergies: PROCHLORPERAZINE (Verified Allergy, Severe, 02/20/16) Subjective no N/V no abd pain Objective Last 24 Hour Vital Signs Date Time Temp Pulse Resp B/P Pulse Ox O2 Delivery O2 Flow Rate FiO2 09/26/16 04:00 98.0 76 20 117/56 98 Room Air 09/26/16 04:00 82 09/26/16 00:00 98.2 84 20 122/58 96 Room Air 09/26/16 00:00 84 09/25/16 23:24 97.5 09/25/16 20:00 82 09/25/16 20:00 97.5 83 18 134/56 98 Room Air 09/25/16 16:00 98.6 84 16 119/55 98 Room Air 09/25/16 16:00 79 09/25/16 12:01 81 19 99 09/25/16 11:07 97.4 81 19 110/62 99 Nasal Cannula 3.0 09/25/16 11:00 80 20 115/65 99 Nasal Cannula 3.0 09/25/16 10:59 76 20 100 09/25/16 10:55 97.3 82 17 118/66 98 Nasal Cannula 3.0 Intake and Output 09/25/16 09/26/16 19:00 07:00 Intake Total 1050 ml 613 ml Output Total 0 ml Balance 1050 ml 613 ml Intake Oral 250 ml 240 ml IV Total 800 ml 373 ml Output Estimated Blood Loss 0 ml # Voids 4 Laboratory Tests 09/26/16 07:05: White Blood Count [Pending], Red Blood Count [Pending], Hemoglobin [Pending], Hematocrit [Pending], Mean Corpuscular Volume [Pending], Mean Corpuscular Hemoglobin [Pending], Mean Corpuscular Hemoglobin Concent [Pending], Red Cell Distribution Width [Pending], Platelet Count [Pending], Mean Platelet Volume [ Pending], Neutrophils (%) (Auto) [Pending], Lymphocytes (%) (Auto) [Pending], Monocytes (%) (Auto) [Pending], Eosinophils (%) (Auto) [Pending], Basophils (%) (Auto) [Pending], Prothrombin Time [Pending], Prothromb Time International Ratio [Pending], Activated Partial Thromboplast Time [Pending], Sodium Level [ Pending], Potassium Level [Pending], Chloride Level [Pending], Carbon Dioxide Level [Pending], Blood Urea Nitrogen [Pending], Creatinine [Pending], Estimat Glomerular Filtration Rate [Pending], Glucose Level [Pending], Calcium Level [ Pending], Phosphorus Level [Pending], Magnesium Level [Pending], Total Bilirubin [Pending], Aspartate Amino Transf (AST/SGOT) [Pending], Alanine Aminotransferase (ALT/SGPT) [Pending], Alkaline Phosphatase [Pending], Total Protein [Pending], Albumin [Pending], Globulin [Pending] Height (Feet): 5 Height (Inches): 4.00 Weight (Pounds): 180 General Appearance: alert EENT: normal ENT inspection Neck: supple Cardiovascular: normal rate Respiratory/Chest: decreased breath sounds Abdomen: normal bowel sounds, non tender, soft Extremities: non-tender AURELIA CHATTERJEE Sep 26, 2016 08:07
[2016-09-26 08:23] LABS: ALANINE AMINOTRANSFERASE 9 U/L (3-33); ANION GAP 9 (5-15); ASPARTATE AMINO TRANSFERASE 14 U/L (5-40); CALCIUM 7.7 mg/dL (8.6-10.2); CARBON DIOXIDE 31 mEQ/L (20-30); CHLORIDE 97 mEQ/L (98-107); CREATININE 0.4 mg/dL (0.5-0.9); HEMOLYSIS 0; MAGNESIUM 2.1 mg/dL (1.7-2.5); PHOSPHORUS 2.6 mg/dL (2.5-4.8); POTASSIUM 3.4 mEQ/L (3.4-4.9); SODIUM 137 mEQ/L (135-145); TOTAL PROTEIN 5.8 g/dL (6.6-8.7)
[2016-09-26] MEDS: Pantoprazole Inj IVP SCH ×2 (08:33→20:07)
[2016-09-26 08:50] LABS: MEAN CORPUSCULAR HEMOGLOBIN 24.5 PG (27.0-31.0); MEAN CORPUSCULAR HGB CONC 29.9 G/DL (32.0-36.0); MEAN CORPUSCULAR VOLUME 82 FL (80-99); MEAN PLATELET VOLUME 5.8 FL (6.5-10.1); PLATELET COUNT 359 K/UL (150-450); RED BLOOD COUNT 2.93 M/UL (4.20-5.40); RED CELL DISTRIBUTION WIDTH 17.1 % (11.6-14.8); WHITE BLOOD COUNT 7.5 K/UL (4.8-10.8)
[2016-09-26 09:17] LABS: INR 1.1 (0.9-1.1); PROTHROMBIN TIME 11.2 SEC (9.30-11.50)
[2016-09-26] MEDS ORDERED: Promethazine/Codeine 5ml UD ORAL PRN (11:45)
[2016-09-26 11:57] LABS: BAND NEUTROPHILS % (MANUAL) 2 % (0-8); EOSINOPHILS % (MANUAL) 8 % (0-3); LYMPHOCYTES % (MANUAL) 16 % (20-45); NEUTROPHILS % (MANUAL) 63 % (45-75); TOTAL CELLS COUNTED 100
[2016-09-26 11:58] LABS: ACANTHOCYTES OCCASIONAL; ANISOCYTOSIS 2+; BASOPHILS % (MANUAL) 0 % (0-2); HYPOCHROMASIA 1+; MICROCYTES 1+; PLATELET ESTIMATE ADEQUATE; PLATELET MORPHOLOGY NORMAL
[2016-09-26] MEDS ORDERED: Epogen (for non ESRD use) SUBQ SCH ×2 (20:00→21:00)
[2016-09-27] VITALS: BP 122/59
[2016-09-27] MEDS: Morphine Sulfate 2mg/ml Inj IVP PRN ×2 (03:27→16:39)
[2016-09-27 04:00] VITALS: BP 123/54
[2016-09-27 08:00] VITALS: BP 131/60
[2016-09-27] MEDS: Pantoprazole Inj IVP SCH ×2 (08:50→21:35)
--- NOTE | 2016-09-27 09:28 | General Progress Note ---
Assessment/Plan Problem List: (1) Hiatal hernia ICD Codes: K44.9 - Diaphragmatic hernia without obstruction or gangrene SNOMED: 45572032 (2) GERD (gastroesophageal reflux disease) ICD Codes: K21.9 - Gastro-esophageal reflux disease without esophagitis SNOMED: 508002855 (3) Diverticulosis ICD Codes: K57.90 - Diverticulosis of intestine, part unspecified, without perforation or abscess without bleeding SNOMED: 112704410 (4) Esophagitis ICD Codes: K20.9 - Esophagitis, unspecified SNOMED: 63302558 Assessment/Plan ppi fu H&H reflux measures fu biopsy results +/- colonoscopy if needed Subjective ROS Limited/Unobtainable: Yes Allergies: Coded Allergies: PROCHLORPERAZINE (Verified Allergy, Severe, 02/20/16) Subjective no N/V no abd pain Objective Last 24 Hour Vital Signs Date Time Temp Pulse Resp B/P Pulse Ox O2 Delivery O2 Flow Rate FiO2 09/27/16 08:05 86 18 Nasal Cannula 2.0 28 09/27/16 08:00 98.1 84 20 131/60 95 Room Air 09/27/16 04:00 97.6 87 20 123/54 95 Nasal Cannula 2.0 09/27/16 03:46 84 09/27/16 00:00 97.0 96 20 122/59 96 Nasal Cannula 2.0 09/26/16 22:00 96 110/43 09/26/16 20:00 99.7 99 20 145/71 95 Room Air 09/26/16 19:54 96 09/26/16 16:00 96 09/26/16 16:00 97.6 95 20 134/65 97 Nasal Cannula 2.0 09/26/16 12:00 98.2 86 20 138/76 98 Room Air 09/26/16 12:00 89 Intake and Output 09/26/16 09/27/16 19:00 07:00 Intake Total 795 ml 900 ml Balance 795 ml 900 ml Intake Oral 120 ml IV Total 675 ml 900 ml # Voids 1 # Bowel Movements 1 Laboratory Tests 09/27/16 03:20: White Blood Count [Pending], Red Blood Count [Pending], Hemoglobin [Pending], Hematocrit [Pending], Mean Corpuscular Volume [Pending], Mean Corpuscular Hemoglobin [Pending], Mean Corpuscular Hemoglobin Concent [Pending], Red Cell Distribution Width [Pending], Platelet Count [Pending], Mean Platelet Volume [ Pending], Neutrophils (%) (Auto) [Pending], Lymphocytes (%) (Auto) [Pending], Monocytes (%) (Auto) [Pending], Eosinophils (%) (Auto) [Pending], Basophils (%) (Auto) [Pending], Sodium Level [Pending], Potassium Level [Pending], Chloride Level [Pending], Carbon Dioxide Level [Pending], Blood Urea Nitrogen [Pending], Creatinine [Pending], Estimat Glomerular Filtration Rate [Pending], Glucose Level [Pending], Calcium Level [Pending] Height (Feet): 5 Height (Inches): 4.00 Weight (Pounds): 180 General Appearance: alert EENT: normal ENT inspection Neck: supple Cardiovascular: normal rate Respiratory/Chest: lungs clear Abdomen: normal bowel sounds, non tender, soft Extremities: non-tender AURELIA CHATTERJEE Sep 27, 2016 09:28
--- NOTE | 2016-09-27 11:46 | Cardiology Report ---
APPROVED REPORT EKG Measurement Heart [id number] 118P12 [id number] Normal sinus rhythm with sinus arrhythmia Right superior axis deviation Nonspecific intraventricular conduction delay Abnormal ECG
[2016-09-27 12:00] VITALS: BP 130/57
--- NOTE | 2016-09-27 14:09 | Pulmonology Progress Note ---
Assessment/Plan Assessment/Plan ASSESSMENT upper GI bleeding pyuria, possible UTI anemia s/p EGD esophagitis , s/p bx PLAN OF CARE IVF s/p EGD with findings of esophagitis, biopsy results pending GI follows monitor HH , trending down patient declined blood transfusion GI prophylaxis advance diet as tolerated antiemetic prn per GI colonoscopy on Wednesday CXR negative O2 HHN prn no labs today explained to DPOA (daughter of the patient) need for transfusion daughter declined blood transfusion and labs for today she is aware that her mother is on EPO and believes that Hgb will build up, wants to wait till am CBC transfer to [facility] floor case discussed and evaluated by supervising physician Subjective Allergies: Coded Allergies: PROCHLORPERAZINE (Verified Allergy, Severe, 02/20/16) Subjective afebrile, leukocytosis resolved HH trending down no SOB, no signs of respiratory distress Objective Last 24 Hour Vital Signs Date Time Temp Pulse Resp B/P Pulse Ox O2 Delivery O2 Flow Rate FiO2 09/27/16 12:00 98.5 85 20 130/57 95 Room Air 2.0 09/27/16 08:05 86 18 Nasal Cannula 2.0 28 09/27/16 08:00 84 09/27/16 08:00 98.1 84 20 131/60 95 Room Air 09/27/16 04:00 97.6 87 20 123/54 95 Nasal Cannula 2.0 09/27/16 03:46 84 09/27/16 00:00 97.0 96 20 122/59 96 Nasal Cannula 2.0 09/26/16 22:00 96 110/43 09/26/16 20:00 99.7 99 20 145/71 95 Room Air 09/26/16 19:54 96 09/26/16 16:00 96 09/26/16 16:00 97.6 95 20 134/65 97 Nasal Cannula 2.0 Intake and Output 09/26/16 09/27/16 18:59 06:59 Intake Total 795 ml 975 ml Balance 795 ml 975 ml Intake Oral 120 ml IV Total 675 ml 975 ml # Voids 1 # Bowel Movements 1 Objective General Appearance: no acute distress HEENT: normocephalic, atraumatic, anicteric, mucous membranes moist Respiratory/Chest: lungs clear, no respiratory distress, no accessory muscle use Cardiovascular: normal rate, no gallop/murmur, no JVD Abdomen: normal bowel sounds, soft, non tender, non distended Genitourinary: normal external genitalia Extremities: no edema, pedal pulses normal Neurologic/Psychiatric: no motor/sensory deficits, alert, responsive, normal mood/affect Laboratory Tests 09/27/16 03:20: White Blood Count [Pending], Red Blood Count [Pending], Hemoglobin [Pending], Hematocrit [Pending], Mean Corpuscular Volume [Pending], Mean Corpuscular Hemoglobin [Pending], Mean Corpuscular Hemoglobin Concent [Pending], Red Cell Distribution Width [Pending], Platelet Count [Pending], Mean Platelet Volume [ Pending], Neutrophils (%) (Auto) [Pending], Lymphocytes (%) (Auto) [Pending], Monocytes (%) (Auto) [Pending], Eosinophils (%) (Auto) [Pending], Basophils (%) (Auto) [Pending], Sodium Level [Pending], Potassium Level [Pending], Chloride Level [Pending], Carbon Dioxide Level [Pending], Blood Urea Nitrogen [Pending], Creatinine [Pending], Estimat Glomerular Filtration Rate [Pending], Glucose Level [Pending], Calcium Level [Pending] Current Medications Medications (Trade) Dose Ordered Sig/Leroy Route PRN Reason Start Time Stop Time Status Last Admin Dose Admin Acetaminophen (Tylenol) 650 mg Q4H PRN ORAL fever 09/24/16 23:45 10/24/16 23:44 Al Hydroxide/Mg Hydroxide (Mylanta II) 30 ml Q6H PRN ORAL dyspepsia 09/24/16 23:45 10/24/16 23:44 Albuterol/ Ipratropium (DuoNeb 0.5-3(2.5)mg/3ml) 3 ml Q4H PRN HHN Shortness of Breath 09/26/16 07:30 10/01/16 07:29 Dextrose (Dextrose 50%) STAT PRN IV Hypoglycemia 09/24/16 23:45 10/24/16 23:44 Dextrose/ Electrolytes (D5NS W/KCl 20meq 1000ml) 1,000 ml @ 75 mls/hr [id number] IV 09/25/16 01:00 10/25/16 00:59 09/27/16 06:34 Diphenhydramine HCl (Benadryl) 25 mg Q6H PRN ORAL Itching/Pruritis 09/24/16 23:45 10/24/16 23:44 09/25/16 12:21 Epoetin Bassam (Procrit (for non ESRD use)) 10,000 units WED-WED-WED SUBQ 09/26/16 21:00 10/26/16 20:59 09/26/16 22:02 Morphine Sulfate (Morphine Sulfate) 2 mg Q4H PRN IVP severe Pain (Pain Scale 7-10) 09/24/16 23:45 10/01/16 23:44 09/27/16 03:27 Nitroglycerin (Ntg) 0.4 mg Q5M X 3 DOSES PRN SL Prn Chest Pain 09/24/16 23:45 10/24/16 23:44 Ondansetron HCl (Zofran) 4 mg Q6H PRN IVP Nausea & Vomiting 09/24/16 23:45 10/24/16 23:44 Pantoprazole 40 mg 40 mg EVERY 12 HOURS IVP 09/25/16 09:00 10/25/16 08:59 09/27/16 08:50 Polyethylene Glycol (Miralax) 17 gm HSPRN PRN ORAL Constipation 09/24/16 23:45 10/24/16 23:44 09/26/16 12:15 Promethazine HCl/ Codeine (Phenergan with Codeine) 5 ml Q6H PRN ORAL For Cough 09/26/16 11:45 10/26/16 11:44 09/26/16 14:04 Temazepam (Restoril) 15 mg HSPRN PRN ORAL Insomnia 09/24/16 23:45 10/01/16 23:44 09/26/16 00:58 [facility]Jessi NP Sep 27, 2016 14:09
[2016-09-27 16:00] VITALS: BP 128/54
[2016-09-27 20:00] VITALS: BP 120/55
[2016-09-28] VITALS: BP 142/67
[2016-09-28] MEDS ORDERED: Nitroglycerin Subl 0.4mg tab (Bottle Of 25) SL PRN (00:15)
[2016-09-28] MEDS ORDERED: DuoNeb 0.5-3(2.5)mg/3ml neb HHN PRN (03:30)
[2016-09-28] MEDS ORDERED: Morphine Sulfate 2mg/ml Inj IVP PRN (03:45)
[2016-09-28 04:00] VITALS: BP 143/57
[2016-09-28] MEDS ORDERED: Mylanta II UD 30ml ORAL PRN (05:45)
[2016-09-28] MEDS: NovoLOG Insulin Flexpen SUBQ SCH ×4 (07:03→21:00)
[2016-09-28 07:50] LABS: MEAN CORPUSCULAR HEMOGLOBIN 24.3 PG (27.0-31.0); MEAN CORPUSCULAR VOLUME 81 FL (80-99); PLATELET COUNT 421 K/UL (150-450); RED BLOOD COUNT 2.98 M/UL (4.20-5.40); RED CELL DISTRIBUTION WIDTH 16.3 % (11.6-14.8); WHITE BLOOD COUNT 5.8 K/UL (4.8-10.8)
[2016-09-28 08:00] VITALS: BP 147/65
[2016-09-28 08:12] LABS: ANION GAP 12 (5-15); CARBON DIOXIDE 25 mEQ/L (20-30); CHLORIDE 96 mEQ/L (98-107); CREATININE 0.4 mg/dL (0.5-0.9); HEMOLYSIS 0; POTASSIUM 4.5 mEQ/L (3.4-4.9); SODIUM 133 mEQ/L (135-145)
[2016-09-28] MEDS: Pantoprazole Inj IVP SCH ×2 (08:43→21:01)
[2016-09-28 10:02] LABS: ANISOCYTOSIS 1+; BAND NEUTROPHILS % (MANUAL) 0 % (0-8); BASOPHILS % (MANUAL) 0 % (0-2); EOSINOPHILS % (MANUAL) 9 % (0-3); LYMPHOCYTES % (MANUAL) 13 % (20-45); MICROCYTES 1+; NEUTROPHILS % (MANUAL) 70 % (45-75); PLATELET ESTIMATE ADEQUATE; PLATELET MORPHOLOGY NORMAL; TOTAL CELLS COUNTED 100
[2016-09-28 12:00] VITALS: BP 134/60
--- NOTE | 2016-09-28 12:47 | GI Progress Note ---
Assessment/Plan Problems: (1) Esophagitis ICD Codes: K20.9 - Esophagitis, unspecified SNOMED: 21650197 (2) Coffee ground emesis ICD Codes: K92.0 - Hematemesis SNOMED: 56323399 (3) Hiatal hernia ICD Codes: K44.9 - Diaphragmatic hernia without obstruction or gangrene SNOMED: 37273982 (4) GERD (gastroesophageal reflux disease) ICD Codes: K21.9 - Gastro-esophageal reflux disease without esophagitis SNOMED: 707745328 (5) Diverticulosis ICD Codes: K57.90 - Diverticulosis of intestine, part unspecified, without perforation or abscess without bleeding SNOMED: 007362766 (6) Vomiting ICD Codes: R11.10 - Vomiting, unspecified SNOMED: 263013923 Status: unchanged Status Narrative Discussed with Dr. Quesada Assessment/Plan s/p EGD >> esophagitis recommend patient to have colonoscopy to evaluate anemia >> refused by family monitor H&H >> DPOA refused blood transfusion ppi reflux measures fu biopsy results ordered iron panel ordered OB stool fu labs Subjective Gastrointestinal/Abdominal: Reports: abdominal pain - improving Objective Last 24 Hour Vital Signs Date Time Temp Pulse Resp B/P Pulse Ox O2 Delivery O2 Flow Rate FiO2 09/28/16 08:00 97.8 91 22 147/65 Room Air 09/28/16 04:00 97.9 84 20 143/57 92 Room Air 09/28/16 00:00 97.9 94 21 142/67 95 Nasal Cannula 2.0 09/27/16 20:00 97.7 70 20 120/55 09/27/16 19:29 81 20 Nasal Cannula 2.0 28 09/27/16 16:00 97.9 91 21 128/54 96 09/27/16 14:57 88 18 99 Nasal Cannula 2.0 28 09/27/16 14:46 86 20 95 Nasal Cannula 2.0 28 Intake and Output 09/27/16 09/28/16 19:00 07:00 Intake Total 900 ml 750 ml Balance 900 ml 750 ml IV Total 900 ml 750 ml # Voids 3 Laboratory Tests Test 09/28/16 07:30 White Blood Count 5.8 K/UL (4.8-10.8) Red Blood Count 2.98 M/UL (4.20-5.40) L Hemoglobin 7.3 G/DL (12.0-16.0) L Hematocrit 24.2 % (37.0-47.0) L Mean Corpuscular Volume 81 FL (80-99) Mean Corpuscular Hemoglobin 24.3 PG (27.0-31.0) L Mean Corpuscular Hemoglobin Concent 30.0 G/DL (32.0-36.0) L Red Cell Distribution Width 16.3 % (11.6-14.8) H Platelet Count 421 K/UL (150-450) Mean Platelet Volume 5.0 FL (6.5-10.1) L Neutrophils (%) (Auto) % (45.0-75.0) Lymphocytes (%) (Auto) % (20.0-45.0) Monocytes (%) (Auto) % (1.0-10.0) Eosinophils (%) (Auto) % (0.0-3.0) Basophils (%) (Auto) % (0.0-2.0) Differential Total Cells Counted 100 Neutrophils % (Manual) 70 % (45-75) Lymphocytes % (Manual) 13 % (20-45) L Monocytes % (Manual) 8 % (1-10) Eosinophils % (Manual) 9 % (0-3) H Basophils % (Manual) 0 % (0-2) Band Neutrophils 0 % (0-8) Platelet Estimate Adequate Platelet Morphology Normal Anisocytosis 1+ Microcytosis 1+ Sodium Level 133 mEQ/L (135-145) L Potassium Level 4.5 mEQ/L (3.4-4.9) Chloride Level 96 mEQ/L (98-107) L Carbon Dioxide Level 25 mEQ/L (20-30) Anion Gap 12 (5-15) Blood Urea Nitrogen 3 mg/dL (7-23) L Creatinine 0.4 mg/dL (0.5-0.9) L Estimat Glomerular Filtration Rate mL/min (>60) Glucose Level 179 mg/dL (74-106) H Calcium Level 8.0 mg/dL (8.6-10.2) L Height (Feet): 5 Height (Inches): 4.00 Weight (Pounds): 180 General Appearance: no apparent distress, alert, obese Cardiovascular: normal rate Respiratory/Chest: normal breath sounds, no respiratory distress Abdominal Exam: normal bowel sounds, non tender, soft Landin,Aracely Ernie N.P. Sep 28, 2016 12:47
[2016-09-28 16:00] VITALS: BP 145/73
--- NOTE | 2016-09-28 18:51 | Pulmonology Progress Note ---
Assessment/Plan Problems: (1) Coffee ground emesis (2) UTI (urinary tract infection) (3) Leukocytosis (4) Hiatal hernia (5) GERD (gastroesophageal reflux disease) Assessment/Plan h/h dropping, refusing prbc, since Jehovas witness endoscopy results reviewed with Dr. Eugene tom. check urine cultures. avoid blood draw. venofer Iv Subjective ROS Limited/Unobtainable: No Interval Events: awake, EGD was done paritially Allergies: Coded Allergies: PROCHLORPERAZINE (Verified Allergy, Severe, 02/20/16) Objective Last 24 Hour Vital Signs Date Time Temp Pulse Resp B/P Pulse Ox O2 Delivery O2 Flow Rate FiO2 09/28/16 16:00 98.0 79 22 145/73 97 Room Air 09/28/16 13:28 84 18 Nasal Cannula 2.0 28 09/28/16 12:00 97.0 88 20 134/60 96 Room Air 09/28/16 08:00 97.8 91 22 147/65 Room Air 09/28/16 04:00 97.9 84 20 143/57 92 Room Air 09/28/16 00:00 97.9 94 21 142/67 95 Nasal Cannula 2.0 09/27/16 20:00 97.7 70 20 120/55 09/27/16 19:29 81 20 Nasal Cannula 2.0 28 Intake and Output 09/27/16 09/28/16 19:00 07:00 Intake Total 900 ml 750 ml Balance 900 ml 750 ml IV Total 900 ml 750 ml # Voids 3 General Appearance: WD/WN HEENT: normocephalic, atraumatic Respiratory/Chest: chest wall non-tender, lungs clear Cardiovascular: normal peripheral pulses, normal rate Abdomen: normal bowel sounds, soft, non tender Extremities: no cyanosis, no clubbing 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 Lymphatic: no neck adenopathy, no groin adenopathy Musculoskeletal: normal muscle bulk Laboratory Tests 09/28/16 07:30: White Blood Count 5.8, Red Blood Count 2.98L, Hemoglobin 7.3L, Hematocrit 24.2L , Mean Corpuscular Volume 81, Mean Corpuscular Hemoglobin 24.3L, Mean Corpuscular Hemoglobin Concent 30.0L, Red Cell Distribution Width 16.3H, Platelet Count 421, Mean Platelet Volume 5.0L, Neutrophils (%) (Auto) , Lymphocytes (%) (Auto) , Monocytes (%) (Auto) , Eosinophils (%) (Auto) , Basophils (%) (Auto) , Differential Total Cells Counted 100, Neutrophils % ( Manual) 70, Lymphocytes % (Manual) 13L, Monocytes % (Manual) 8, Eosinophils % ( Manual) 9H, Basophils % (Manual) 0, Band Neutrophils 0, Platelet Estimate Adequate, Platelet Morphology Normal, Anisocytosis 1+, Microcytosis 1+, Sodium Level 133L, Potassium Level 4.5, Chloride Level 96L, Carbon Dioxide Level 25, Anion Gap 12, Blood Urea Nitrogen 3L, Creatinine 0.4L, Estimat Glomerular Filtration Rate , Glucose Level 179H, Calcium Level 8.0L Current Medications Medications (Trade) Dose Ordered Sig/Leroy Route PRN Reason Start Time Stop Time Status Last Admin Dose Admin Acetaminophen (Tylenol) 650 mg Q4H PRN ORAL fever 09/28/16 03:45 10/28/16 03:44 Al Hydroxide/Mg Hydroxide (Mylanta II) 30 ml Q6H PRN ORAL dyspepsia 09/28/16 05:45 10/28/16 05:44 Albuterol/ Ipratropium (DuoNeb 0.5-3(2.5)mg/3ml) 3 ml Q4H PRN HHN Shortness of Breath 09/28/16 03:30 10/03/16 03:29 Dextrose (Dextrose 50%) STAT PRN IV Hypoglycemia 09/28/16 01:45 10/28/16 01:44 Dextrose/ Electrolytes (D5NS W/KCl 20meq 1000ml) 1,000 ml @ 75 mls/hr [id number] IV 09/28/16 00:15 10/28/16 00:14 09/28/16 11:54 Diphenhydramine HCl (Benadryl) 25 mg Q6H PRN ORAL Itching/Pruritis 09/28/16 05:45 10/28/16 05:44 Epoetin Bassam (Procrit (for non ESRD use)) 10,000 units MON-WED-FRI SUBQ 09/28/16 21:00 10/28/16 20:59 Insulin Aspart (NovoLOG) BEFORE MEALS AND HS SUBQ 09/28/16 06:30 10/28/16 06:29 09/28/16 16:59 Morphine Sulfate (Morphine Sulfate) 2 mg Q4H PRN IVP severe Pain (Pain Scale 7-10) 09/28/16 03:45 10/05/16 03:44 Nitroglycerin (Ntg) 0.4 mg Q5M X 3 DOSES PRN SL Prn Chest Pain 09/28/16 00:15 10/28/16 00:14 Ondansetron HCl (Zofran) 4 mg Q6H PRN IVP Nausea & Vomiting 09/28/16 05:45 10/28/16 05:44 Pantoprazole (Protonix) 40 mg EVERY 12 HOURS IVP 09/28/16 09:00 10/28/16 08:59 09/28/16 08:43 Polyethylene Glycol (Miralax) 17 gm HSPRN PRN ORAL Constipation 09/28/16 23:45 10/28/16 23:44 Promethazine HCl/ Codeine (Phenergan with Codeine) 5 ml Q6H PRN ORAL For Cough 09/28/16 05:45 10/28/16 05:44 Temazepam (Restoril) 15 mg HSPRN PRN ORAL Insomnia 09/28/16 23:45 10/05/16 23:44 TERRANCE LLOYD Sep 28, 2016 18:51
[2016-09-28 20:00] VITALS: BP 139/55
[2016-09-28] MEDS: Epogen (for non ESRD use) SUBQ SCH (21:00)
[2016-09-28] MEDS ORDERED: Epogen (for non ESRD use) SUBQ SCH (21:00)
[2016-09-28] MEDS: Iron Sucrose 100 MG in NS 55 ML IVPB SCH (21:01)
[2016-09-28] MEDS ORDERED: Miralax 17gm pkt ORAL PRN (23:45)
[2016-09-29] VITALS: BP 138/64
[2016-09-29] MEDS: Promethazine/Codeine 5ml UD ORAL PRN (02:21)
[2016-09-29 04:00] VITALS: BP 130/63
[2016-09-29] MEDS: NovoLOG Insulin Flexpen SUBQ SCH ×4 (06:24→20:53)
[2016-09-29 08:00] VITALS: BP 121/50
[2016-09-29] MEDS: Pantoprazole Inj IVP SCH ×2 (08:37→20:44)
[2016-09-29 12:00] VITALS: BP 120/58
--- NOTE | 2016-09-29 15:48 | GI Progress Note ---
Assessment/Plan Problems: (1) Esophagitis ICD Codes: K20.9 - Esophagitis, unspecified SNOMED: 84666569 (2) Coffee ground emesis ICD Codes: K92.0 - Hematemesis SNOMED: 70990040 (3) Hiatal hernia ICD Codes: K44.9 - Diaphragmatic hernia without obstruction or gangrene SNOMED: 18293806 (4) GERD (gastroesophageal reflux disease) ICD Codes: K21.9 - Gastro-esophageal reflux disease without esophagitis SNOMED: 174401416 (5) Diverticulosis ICD Codes: K57.90 - Diverticulosis of intestine, part unspecified, without perforation or abscess without bleeding SNOMED: 272582315 (6) Vomiting ICD Codes: R11.10 - Vomiting, unspecified SNOMED: 559414201 Status: unchanged Status Narrative Discussed with Dr. Quesada. Assessment/Plan s/p EGD >> esophagitis recommend patient to have colonoscopy to evaluate anemia >> refused by family Johovas witness >> no blood draws OB stool positive dc planning symptomatic treatment ppi reflux measures bowel regime O2 Subjective Gastrointestinal/Abdominal: Reports: no symptoms Objective Last 24 Hour Vital Signs Date Time Temp Pulse Resp B/P Pulse Ox O2 Delivery O2 Flow Rate FiO2 09/29/16 12:00 98.1 86 18 120/58 96 Nasal Cannula 2.0 09/29/16 08:00 97.7 88 18 121/50 95 Nasal Cannula 2.0 09/29/16 04:00 97.7 97 20 130/63 94 Nasal Cannula 2.0 09/29/16 00:00 97.3 64 20 138/64 92 Nasal Cannula 2.0 09/28/16 20:00 97.9 99 20 139/55 94 Nasal Cannula 2.0 09/28/16 19:36 118 20 99 Nasal Cannula 2.0 28 09/28/16 19:35 115 20 Nasal Cannula 2.0 28 09/28/16 19:35 115 20 98 Nasal Cannula 2.0 28 09/28/16 16:00 98.0 79 22 145/73 97 Room Air Intake and Output 09/28/16 09/29/16 19:00 07:00 Intake Total 1545 ml 60 ml Output Total 2 ml Balance 1545 ml 58 ml Intake Oral 720 ml IV Total 825 ml 60 ml Output Urine Total 2 ml # Voids 3 # Bowel Movements 2 1 Laboratory Tests Test 09/29/16 02:30 Stool Occult Blood Positive (NEGATIVE) Microbiology Date/Time Source Procedure Growth Status 09/28/16 20:00 Sputum Expectorated Gram Stain - Final Resulted 09/28/16 20:00 Sputum Expectorated Sputum Culture Pending Resulted Height (Feet): 5 Height (Inches): 4.00 Weight (Pounds): 180 General Appearance: no apparent distress, alert, obese Cardiovascular: normal rate Respiratory/Chest: other - 2LNC Abdominal Exam: normal bowel sounds, non tender, soft Objective [facility] Aracely Landin N.P. Sep 29, 2016 15:48
[2016-09-29 16:00] VITALS: BP 100/55
[2016-09-29 19:00] VITALS: BP 114/43
[2016-09-29] MEDS: Iron Sucrose 100 MG in NS 55 ML IVPB SCH (20:44)
--- NOTE | 2016-09-29 23:48 | Pulmonology Progress Note ---
Assessment/Plan Problems: (1) Coffee ground emesis (2) UTI (urinary tract infection) (3) Leukocytosis (4) Hiatal hernia (5) GERD (gastroesophageal reflux disease) Assessment/Plan refusing prbc, since Jehovas witness endoscopy results reviewed with Dr. Eugene geiger wbc. check urine cultures. avoid blood draw. venofer Iv Subjective ROS Limited/Unobtainable: No Constitutional: Reports: no symptoms HEENT: Repors: no symptoms Respiratory: Reports: no symptoms Cardiovascular: Reports: no symptoms Allergies: Coded Allergies: PROCHLORPERAZINE (Verified Allergy, Severe, 02/20/16) Objective Last 24 Hour Vital Signs Date Time Temp Pulse Resp B/P Pulse Ox O2 Delivery O2 Flow Rate FiO2 09/29/16 19:30 91 18 Nasal Cannula 2.0 28 09/29/16 19:28 93 Nasal Cannula 2.0 28 09/29/16 19:28 Nasal Cannula 2.0 28 09/29/16 19:00 97.3 88 20 114/43 95 Nasal Cannula 2.0 09/29/16 18:33 97.7 09/29/16 16:00 97.7 86 20 100/55 93 Nasal Cannula 2.0 09/29/16 12:00 98.1 86 18 120/58 96 Nasal Cannula 2.0 09/29/16 08:00 97.7 88 18 121/50 95 Nasal Cannula 2.0 09/29/16 04:00 97.7 97 20 130/63 94 Nasal Cannula 2.0 09/29/16 00:00 97.3 64 20 138/64 92 Nasal Cannula 2.0 Intake and Output 09/28/16 09/29/16 18:59 06:59 Intake Total 1545 ml 135 ml Output Total 2 ml Balance 1545 ml 133 ml Intake Oral 720 ml IV Total 825 ml 135 ml Output Urine Total 2 ml # Voids 3 # Bowel Movements 2 1 General Appearance: WD/WN HEENT: normocephalic Respiratory/Chest: chest wall non-tender, lungs clear Cardiovascular: normal peripheral pulses, normal rate Abdomen: normal bowel sounds, soft, non tender Extremities: no cyanosis 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, 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 Microbiology Date/Time Source Procedure Growth Status 09/28/16 20:00 Sputum Expectorated Gram Stain - Final Resulted 09/28/16 20:00 Sputum Expectorated Sputum Culture Pending Resulted Laboratory Tests 09/29/16 02:30: Stool Occult Blood Positive Current Medications Medications (Trade) Dose Ordered Sig/Leroy Route PRN Reason Start Time Stop Time Status Last Admin Dose Admin Acetaminophen (Tylenol) 650 mg Q4H PRN ORAL fever 09/28/16 03:45 10/28/16 03:44 09/29/16 17:34 Al Hydroxide/Mg Hydroxide (Mylanta II) 30 ml Q6H PRN ORAL dyspepsia 09/28/16 05:45 10/28/16 05:44 Albuterol/ Ipratropium (DuoNeb 0.5-3(2.5)mg/3ml) 3 ml Q4H PRN HHN Shortness of Breath 09/28/16 03:30 10/03/16 03:29 09/28/16 19:34 Dextrose STAT PRN IV Hypoglycemia 09/28/16 01:45 10/28/16 01:44 Diphenhydramine HCl (Benadryl) 25 mg Q6H PRN ORAL Itching/Pruritis 09/28/16 05:45 10/28/16 05:44 09/29/16 00:59 Epoetin Bassam (Procrit (for non ESRD use)) 10,000 units WED-WED-WED SUBQ 09/28/16 21:00 10/28/16 20:59 09/28/16 21:00 Insulin Aspart (NovoLOG) BEFORE MEALS AND HS SUBQ 09/28/16 06:30 10/28/16 06:29 09/29/16 12:58 Iron Sucrose/ Sodium Chloride (Venofer/Sodium Chloride) 60 ml @ 240 mls/hr BEDTIME IVPB 09/28/16 21:00 10/02/16 21:14 09/29/16 20:44 Morphine Sulfate (Morphine Sulfate) 2 mg Q4H PRN IVP severe Pain (Pain Scale 7-10) 09/28/16 03:45 10/05/16 03:44 Nitroglycerin (Ntg) 0.4 mg Q5M X 3 DOSES PRN SL Prn Chest Pain 09/28/16 00:15 10/28/16 00:14 Ondansetron HCl (Zofran) 4 mg Q6H PRN IVP Nausea & Vomiting 09/28/16 05:45 10/28/16 05:44 09/29/16 17:32 Pantoprazole (Protonix) 40 mg EVERY 12 HOURS IVP 09/28/16 09:00 10/28/16 08:59 09/29/16 20:44 Polyethylene Glycol (Miralax) 17 gm HSPRN PRN ORAL Constipation 09/28/16 23:45 10/28/16 23:44 Promethazine HCl/ Codeine (Phenergan with Codeine) 5 ml Q6H PRN ORAL For Cough 09/28/16 05:45 10/28/16 05:44 09/29/16 02:21 Temazepam (Restoril) 15 mg HSPRN PRN ORAL Insomnia 09/28/16 23:45 10/05/16 23:44 TERRANCE LLOYD Sep 29, 2016 23:48
[2016-09-30] VITALS: BP 127/54
[2016-09-30 04:00] VITALS: BP 112/68
[2016-09-30] MEDS: NovoLOG Insulin Flexpen SUBQ SCH ×4 (05:54→21:13)
[2016-09-30 08:00] VITALS: BP 128/57
[2016-09-30] MEDS: Pantoprazole Inj IVP SCH ×2 (08:57→20:47)
[2016-09-30] MEDS: Promethazine/Codeine 5ml UD ORAL PRN ×2 (08:57→16:39)
[2016-09-30 12:00] VITALS: BP 131/62
--- NOTE | 2016-09-30 14:32 | GI Progress Note ---
Assessment/Plan Problems: (1) Esophagitis ICD Codes: K20.9 - Esophagitis, unspecified SNOMED: 21012319 (2) Coffee ground emesis ICD Codes: K92.0 - Hematemesis SNOMED: 09916700 (3) Hiatal hernia ICD Codes: K44.9 - Diaphragmatic hernia without obstruction or gangrene SNOMED: 77678043 (4) GERD (gastroesophageal reflux disease) ICD Codes: K21.9 - Gastro-esophageal reflux disease without esophagitis SNOMED: 818899189 (5) Diverticulosis ICD Codes: K57.90 - Diverticulosis of intestine, part unspecified, without perforation or abscess without bleeding SNOMED: 839094035 (6) Vomiting ICD Codes: R11.10 - Vomiting, unspecified SNOMED: 242712390 Status: unchanged Status Narrative Discussed with Dr. Quesada. Assessment/Plan s/p EGD >> esophagitis recommend patient to have colonoscopy to evaluate anemia >> refused by family Johovas witness >> no blood draws OB stool positive dc planning symptomatic treatment ppi reflux measures bowel regime O2 Subjective Gastrointestinal/Abdominal: Reports: no symptoms Subjective refused labs Objective Last 24 Hour Vital Signs Date Time Temp Pulse Resp B/P Pulse Ox O2 Delivery O2 Flow Rate FiO2 09/30/16 12:00 98.4 86 18 131/62 97 Nasal Cannula 2.0 09/30/16 08:00 97.0 85 18 128/57 95 Nasal Cannula 09/30/16 07:51 93 18 Nasal Cannula 2.0 28 09/30/16 07:51 Nasal Cannula 2.0 28 09/30/16 07:51 95 Nasal Cannula 2.0 28 09/30/16 04:00 97.9 92 20 112/68 93 Nasal Cannula 2.0 09/30/16 00:00 97.7 83 20 127/54 96 Nasal Cannula 2.0 09/29/16 19:30 91 18 Nasal Cannula 2.0 28 09/29/16 19:28 93 Nasal Cannula 2.0 28 09/29/16 19:28 Nasal Cannula 2.0 28 09/29/16 19:00 97.3 88 20 114/43 95 Nasal Cannula 2.0 09/29/16 18:33 97.7 09/29/16 16:00 97.7 86 20 100/55 93 Nasal Cannula 2.0 Intake and Output 09/29/16 09/30/16 19:00 07:00 Intake Total 680 ml 600 ml Balance 680 ml 600 ml Intake Oral 680 ml 600 ml # Voids 3 9 Height (Feet): 5 Height (Inches): 4.00 Weight (Pounds): 180 General Appearance: no apparent distress, alert, obese Cardiovascular: normal rate Respiratory/Chest: normal breath sounds, no respiratory distress Abdominal Exam: non tender, soft Objective [facility] Aracely Landin N.P. Sep 30, 2016 14:32
[2016-09-30 16:00] VITALS: BP 119/98
--- NOTE | 2016-09-30 18:39 | Pulmonology Progress Note ---
Assessment/Plan Problems: (1) Coffee ground emesis (2) UTI (urinary tract infection) (3) Leukocytosis (4) Hiatal hernia (5) GERD (gastroesophageal reflux disease) Assessment/Plan NO VRE, NO MRSA no blood work refusing prbc, since Jehovas witness endoscopy results reviewed with Dr. Eugene geiger wbc. venofer Iv dc home in 1/2 days Subjective ROS Limited/Unobtainable: No Interval Events: doing better Allergies: Coded Allergies: PROCHLORPERAZINE (Verified Allergy, Severe, 02/20/16) Objective Last 24 Hour Vital Signs Date Time Temp Pulse Resp B/P Pulse Ox O2 Delivery O2 Flow Rate FiO2 09/30/16 16:00 98.1 88 20 119/98 98 Nasal Cannula 2.0 09/30/16 12:00 98.4 86 18 131/62 97 Nasal Cannula 2.0 09/30/16 08:00 97.0 85 18 128/57 95 Nasal Cannula 09/30/16 07:51 93 18 Nasal Cannula 2.0 28 09/30/16 07:51 Nasal Cannula 2.0 28 09/30/16 07:51 95 Nasal Cannula 2.0 28 09/30/16 04:00 97.9 92 20 112/68 93 Nasal Cannula 2.0 09/30/16 00:00 97.7 83 20 127/54 96 Nasal Cannula 2.0 09/29/16 19:30 91 18 Nasal Cannula 2.0 28 09/29/16 19:28 93 Nasal Cannula 2.0 28 09/29/16 19:28 Nasal Cannula 2.0 28 09/29/16 19:00 97.3 88 20 114/43 95 Nasal Cannula 2.0 Intake and Output 09/29/16 09/30/16 19:00 07:00 Intake Total 680 ml 600 ml Balance 680 ml 600 ml Intake Oral 680 ml 600 ml # Voids 3 9 HEENT: normocephalic, anicteric Respiratory/Chest: chest wall non-tender, lungs clear Cardiovascular: normal peripheral pulses, normal rate Abdomen: normal bowel sounds, soft, non tender Extremities: no cyanosis Skin: no rash 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, no motor/sensory deficits Microbiology Date/Time Source Procedure Growth Status 09/28/16 20:00 Sputum Expectorated Gram Stain - Final Resulted 09/28/16 20:00 Sputum Expectorated Sputum Culture Pending Resulted Current Medications Medications (Trade) Dose Ordered Sig/Leory Route PRN Reason Start Time Stop Time Status Last Admin Dose Admin Acetaminophen (Tylenol) 650 mg Q4H PRN ORAL fever 09/28/16 03:45 10/28/16 03:44 09/29/16 17:34 Al Hydroxide/Mg Hydroxide (Mylanta II) 30 ml Q6H PRN ORAL dyspepsia 09/28/16 05:45 10/28/16 05:44 Albuterol/ Ipratropium (DuoNeb 0.5-3(2.5)mg/3ml) 3 ml Q4H PRN HHN Shortness of Breath 09/28/16 03:30 10/03/16 03:29 09/28/16 19:34 Dextrose STAT PRN IV Hypoglycemia 09/28/16 01:45 10/28/16 01:44 Diphenhydramine HCl (Benadryl) 25 mg Q6H PRN ORAL Itching/Pruritis 09/28/16 05:45 10/28/16 05:44 09/29/16 00:59 Epoetin Bassam (Procrit (for non ESRD use)) 10,000 units MON-WED-FRI SUBQ 09/28/16 21:00 10/28/16 20:59 09/28/16 21:00 Insulin Aspart (NovoLOG) BEFORE MEALS AND HS SUBQ 09/28/16 06:30 10/28/16 06:29 09/29/16 12:58 Iron Sucrose/ Sodium Chloride (Venofer/Sodium Chloride) 60 ml @ 240 mls/hr BEDTIME IVPB 09/28/16 21:00 10/02/16 21:14 09/29/16 20:44 Morphine Sulfate (Morphine Sulfate) 2 mg Q4H PRN IVP severe Pain (Pain Scale 7-10) 09/28/16 03:45 10/05/16 03:44 Nitroglycerin (Ntg) 0.4 mg Q5M X 3 DOSES PRN SL Prn Chest Pain 09/28/16 00:15 10/28/16 00:14 Ondansetron HCl (Zofran) 4 mg Q6H PRN IVP Nausea & Vomiting 09/28/16 05:45 10/28/16 05:44 09/29/16 17:32 Pantoprazole (Protonix) 40 mg EVERY 12 HOURS IVP 09/28/16 09:00 10/28/16 08:59 09/30/16 08:57 Polyethylene Glycol (Miralax) 17 gm HSPRN PRN ORAL Constipation 09/28/16 23:45 10/28/16 23:44 Promethazine HCl/ Codeine (Phenergan with Codeine) 5 ml Q6H PRN ORAL For Cough 09/28/16 05:45 10/28/16 05:44 09/30/16 16:39 Temazepam (Restoril) 15 mg HSPRN PRN ORAL Insomnia 09/28/16 23:45 10/05/16 23:44 TERRANCE LLOYD Sep 30, 2016 18:39
[2016-09-30 19:00] VITALS: BP 129/63
[2016-09-30] MEDS: Iron Sucrose 100 MG in NS 55 ML IVPB SCH (20:47)
[2016-09-30] MEDS: Epogen (for non ESRD use) SUBQ SCH (21:31)
[2016-10-01] VITALS: BP 120/59
[2016-10-01 04:00] VITALS: BP 125/66
[2016-10-01] MEDS: NovoLOG Insulin Flexpen SUBQ SCH ×4 (05:52→21:00)
[2016-10-01 08:00] VITALS: BP 126/64
[2016-10-01] MEDS: Pantoprazole Inj IVP SCH ×2 (09:02→20:57)
[2016-10-01 12:00] VITALS: BP 139/66
--- NOTE | 2016-10-01 12:43 | Diagnostic Imaging Report ---
APPROVED REPORT CPT Code: 06881 Present Symptoms Lower Extremity Pain: Bilateral BILATERAL: Imaging reveals a patent deep venous system bilaterally. There is no evidence of thrombus within the femoral, popliteal or tibial segments. The greater saphenous veins are also within normal limits. Doppler indicates normal spontaneous flow within these segments.
--- NOTE | 2016-10-01 14:17 | GI Progress Note ---
Assessment/Plan Problems: (1) Esophagitis ICD Codes: K20.9 - Esophagitis, unspecified SNOMED: 65948984 (2) Coffee ground emesis ICD Codes: K92.0 - Hematemesis SNOMED: 07514650 (3) Hiatal hernia ICD Codes: K44.9 - Diaphragmatic hernia without obstruction or gangrene SNOMED: 65053018 (4) GERD (gastroesophageal reflux disease) ICD Codes: K21.9 - Gastro-esophageal reflux disease without esophagitis SNOMED: 885531708 (5) Diverticulosis ICD Codes: K57.90 - Diverticulosis of intestine, part unspecified, without perforation or abscess without bleeding SNOMED: 008335927 (6) Vomiting ICD Codes: R11.10 - Vomiting, unspecified SNOMED: 478100974 Status: unchanged Status Narrative Discussed with Dr. Quesada. Assessment/Plan s/p EGD >> esophagitis recommend patient to have colonoscopy to evaluate anemia >> refused by family Johovas witness >> no blood transfusion + no blood draws OB stool positive dc planning symptomatic treatment ppi reflux measures bowel regime O2 Subjective Gastrointestinal/Abdominal: Reports: no symptoms Objective Last 24 Hour Vital Signs Date Time Temp Pulse Resp B/P Pulse Ox O2 Delivery O2 Flow Rate FiO2 10/01/16 12:00 97.3 75 20 139/66 100 10/01/16 09:00 96 Room Air 10/01/16 09:00 90 18 Room Air 10/01/16 09:00 Room Air 10/01/16 08:00 97.0 79 18 126/64 97 Room Air 10/01/16 04:00 97.5 86 20 125/66 94 Nasal Cannula 2.0 10/01/16 00:00 98.1 82 20 120/59 94 Nasal Cannula 2.0 09/30/16 19:11 Room Air 09/30/16 19:11 88 20 Room Air 09/30/16 19:11 98 Room Air 09/30/16 19:00 97.5 89 20 129/63 96 Nasal Cannula 2.0 09/30/16 16:00 98.1 88 20 119/98 98 Nasal Cannula 2.0 Intake and Output 09/30/16 10/01/16 19:00 07:00 Intake Total 540 ml 300 ml Balance 540 ml 300 ml Intake Oral 540 ml 240 ml IV Total 60 ml # Voids 2 6 Height (Feet): 5 Height (Inches): 4.00 Weight (Pounds): 180 General Appearance: no apparent distress, alert, obese Cardiovascular: normal rate Respiratory/Chest: no respiratory distress Abdominal Exam: normal bowel sounds, non tender, soft Objective [employer] Aracely Landin N.P. Oct 01, 2016 14:17
--- NOTE | 2016-10-01 15:28 | Pulmonology Progress Note ---
Assessment/Plan Problems: (1) Coffee ground emesis (2) UTI (urinary tract infection) (3) Leukocytosis (4) Hiatal hernia (5) GERD (gastroesophageal reflux disease) Assessment/Plan enoch wants to take her home tomorrow refusing prbc, since Jehovas witness endoscopy results reviewed with Dr. Knight check urine cultures. avoid blood draw. venofer Iv dc home in am Subjective ROS Limited/Unobtainable: No Constitutional: Reports: no symptoms HEENT: Repors: no symptoms Respiratory: Reports: no symptoms Allergies: Coded Allergies: PROCHLORPERAZINE (Verified Allergy, Severe, 02/20/16) Objective Last 24 Hour Vital Signs Date Time Temp Pulse Resp B/P Pulse Ox O2 Delivery O2 Flow Rate FiO2 10/01/16 12:00 97.3 75 20 139/66 100 10/01/16 09:00 96 Room Air 10/01/16 09:00 90 18 Room Air 10/01/16 09:00 Room Air 10/01/16 08:00 97.0 79 18 126/64 97 Room Air 10/01/16 04:00 97.5 86 20 125/66 94 Nasal Cannula 2.0 10/01/16 00:00 98.1 82 20 120/59 94 Nasal Cannula 2.0 09/30/16 19:11 Room Air 09/30/16 19:11 88 20 Room Air 09/30/16 19:11 98 Room Air 09/30/16 19:00 97.5 89 20 129/63 96 Nasal Cannula 2.0 09/30/16 16:00 98.1 88 20 119/98 98 Nasal Cannula 2.0 Intake and Output 09/30/16 10/01/16 19:00 07:00 Intake Total 540 ml 300 ml Balance 540 ml 300 ml Intake Oral 540 ml 240 ml IV Total 60 ml # Voids 2 6 General Appearance: WD/WN HEENT: normocephalic, atraumatic Respiratory/Chest: chest wall non-tender, lungs clear Cardiovascular: normal peripheral pulses, normal rate Abdomen: normal bowel sounds, soft, non tender Extremities: no cyanosis Skin: no rash Microbiology Date/Time Source Procedure Growth Status 09/28/16 20:00 Sputum Expectorated Gram Stain - Final Resulted 09/28/16 20:00 Sputum Expectorated Sputum Culture - Preliminary Resulted Current Medications Medications (Trade) Dose Ordered Sig/Leroy Route PRN Reason Start Time Stop Time Status Last Admin Dose Admin Acetaminophen (Tylenol) 650 mg Q4H PRN ORAL fever 09/28/16 03:45 10/28/16 03:44 09/29/16 17:34 Al Hydroxide/Mg Hydroxide (Mylanta II) 30 ml Q6H PRN ORAL dyspepsia 09/28/16 05:45 10/28/16 05:44 Albuterol/ Ipratropium (DuoNeb 0.5-3(2.5)mg/3ml) 3 ml Q4H PRN HHN Shortness of Breath 09/28/16 03:30 10/03/16 03:29 09/28/16 19:34 Dextrose STAT PRN IV Hypoglycemia 09/28/16 01:45 10/28/16 01:44 Diphenhydramine HCl (Benadryl) 25 mg Q6H PRN ORAL Itching/Pruritis 09/28/16 05:45 10/28/16 05:44 09/29/16 00:59 Epoetin Bassam (Procrit (for non ESRD use)) 10,000 units MON-WED-FRI SUBQ 09/28/16 21:00 10/28/16 20:59 09/30/16 21:31 Insulin Aspart (NovoLOG) BEFORE MEALS AND HS SUBQ 09/28/16 06:30 10/28/16 06:29 09/30/16 21:13 Iron Sucrose/ Sodium Chloride (Venofer/Sodium Chloride) 60 ml @ 240 mls/hr BEDTIME IVPB 09/28/16 21:00 10/02/16 21:14 09/30/16 20:47 Morphine Sulfate (Morphine Sulfate) 2 mg Q4H PRN IVP severe Pain (Pain Scale 7-10) 09/28/16 03:45 10/05/16 03:44 Nitroglycerin (Ntg) 0.4 mg Q5M X 3 DOSES PRN SL Prn Chest Pain 09/28/16 00:15 10/28/16 00:14 Ondansetron HCl (Zofran) 4 mg Q6H PRN IVP Nausea & Vomiting 09/28/16 05:45 10/28/16 05:44 09/29/16 17:32 Pantoprazole (Protonix) 40 mg EVERY 12 HOURS IVP 1/23/17 09:00 10/28/16 08:59 10/01/16 09:02 Polyethylene Glycol (Miralax) 17 gm HSPRN PRN ORAL Constipation 09/28/16 23:45 10/28/16 23:44 Promethazine HCl/ Codeine (Phenergan with Codeine) 5 ml Q6H PRN ORAL For Cough 09/28/16 05:45 10/28/16 05:44 09/30/16 16:39 Temazepam (Restoril) 15 mg HSPRN PRN ORAL Insomnia 09/28/16 23:45 10/05/16 23:44 TERRANCE LLOYD Oct 01, 2016 15:28
[2016-10-01 16:00] VITALS: BP 124/59
[2016-10-01 20:00] VITALS: BP 119/54
[2016-10-01] MEDS: Iron Sucrose 100 MG in NS 55 ML IVPB SCH (20:57)
[2016-10-02] VITALS: BP 140/58
[2016-10-02 04:00] VITALS: BP 124/49
[2016-10-02] MEDS: NovoLOG Insulin Flexpen SUBQ SCH ×2 (06:30→11:30)
[2016-10-02 08:21] VITALS: BP 133/73
[2016-10-02] MEDS: Pantoprazole Inj IVP SCH (08:42)
--- NOTE | 2016-10-02 10:27 | GI Progress Note ---
Assessment/Plan Problems: (1) Esophagitis ICD Codes: K20.9 - Esophagitis, unspecified SNOMED: 76780780 (2) Coffee ground emesis ICD Codes: K92.0 - Hematemesis SNOMED: 63110021 (3) Hiatal hernia ICD Codes: K44.9 - Diaphragmatic hernia without obstruction or gangrene SNOMED: 15668206 (4) GERD (gastroesophageal reflux disease) ICD Codes: K21.9 - Gastro-esophageal reflux disease without esophagitis SNOMED: 481965251 (5) Diverticulosis ICD Codes: K57.90 - Diverticulosis of intestine, part unspecified, without perforation or abscess without bleeding SNOMED: 718247572 (6) Vomiting ICD Codes: R11.10 - Vomiting, unspecified SNOMED: 092963672 Status: unchanged Status Narrative Discussed with Dr. Quesada. Assessment/Plan s/p EGD >> esophagitis recommend patient to have colonoscopy to evaluate anemia >> refused by family Johovas witness >> no blood transfusion + no blood draws OB stool positive dc planning symptomatic treatment ppi reflux measures bowel regime O2 Subjective Gastrointestinal/Abdominal: Reports: constipated Objective Last 24 Hour Vital Signs Date Time Temp Pulse Resp B/P Pulse Ox O2 Delivery O2 Flow Rate FiO2 10/02/16 08:21 98.1 80 15 133/73 98 Room Air 10/02/16 04:00 97.7 82 20 124/49 96 Nasal Cannula 2.0 10/02/16 00:00 96.6 80 20 140/58 95 Nasal Cannula 2.0 10/01/16 20:19 Room Air 10/01/16 20:19 97 Room Air 10/01/16 20:18 94 18 Room Air 10/01/16 20:00 97.6 72 16 119/54 100 Room Air 10/01/16 16:00 97.7 80 16 124/59 97 Room Air 10/01/16 12:00 97.3 75 20 139/66 100 Intake and Output 10/01/16 10/02/16 19:00 07:00 Intake Total 460 ml 60 ml Balance 460 ml 60 ml Intake Oral 460 ml IV Total 60 ml # Voids 2 6 # Bowel Movements 1 Height (Feet): 5 Height (Inches): 4.00 Weight (Pounds): 180 General Appearance: no apparent distress, alert, obese Cardiovascular: normal rate Respiratory/Chest: normal breath sounds, no respiratory distress Abdominal Exam: normal bowel sounds, non tender, soft Objective [employer] Aracely Landin N.P. Oct 02, 2016 10:27
--- NOTE | 2016-10-02 11:17 | Diagnostic Imaging Report ---
Indication: Pain 2 views of the left knee were obtained. Findings: Bones are osteopenic. No definite fracture is identified. There is osteophyte and joint space narrowing consistent with osteoarthritis. Impression: No definite fracture identified. Severe osteopenia
--- NOTE | 2016-10-02 11:19 | Diagnostic Imaging Report ---
Indication: Pain 2 views of the right knee were obtained. Findings: There is severe osteopenia which limits evaluation for acute injury. That said there is no obvious fracture identified. There maybe a small joint effusion. Vascular calcifications are extensive. There is narrowing the joint space. Impression: No obvious acute injury. Severe osteopenia
[2016-10-02 11:31] VITALS: BP 134/60
--- NOTE | 2016-10-02 15:06 | Pulmonology Progress Note ---
Assessment/Plan Problems: (1) Coffee ground emesis Assessment & Plan: resolved (2) UTI (urinary tract infection) (3) Leukocytosis (4) Hiatal hernia (5) GERD (gastroesophageal reflux disease) Assessment/Plan NO VRE, NO MRSA no blood work refusing prbc, since Jehovas witness endoscopy results reviewed with Dr. Eugene geiger wbc. venofer Iv dc home today Subjective Constitutional: Reports: no symptoms HEENT: Repors: no symptoms Respiratory: Reports: no symptoms Allergies: Coded Allergies: PROCHLORPERAZINE (Verified Allergy, Severe, 02/20/16) Objective Last 24 Hour Vital Signs Date Time Temp Pulse Resp B/P Pulse Ox O2 Delivery O2 Flow Rate FiO2 10/02/16 11:31 97.3 87 16 134/60 97 Nasal Cannula 10/02/16 08:30 83 18 Room Air 10/02/16 08:21 98.1 80 15 133/73 98 Room Air 10/02/16 04:00 97.7 82 20 124/49 96 Nasal Cannula 2.0 10/02/16 00:00 96.6 80 20 140/58 95 Nasal Cannula 2.0 10/01/16 20:19 Room Air 10/01/16 20:19 97 Room Air 10/01/16 20:18 94 18 Room Air 10/01/16 20:00 97.6 72 16 119/54 100 Room Air 10/01/16 16:00 97.7 80 16 124/59 97 Room Air Intake and Output 10/01/16 10/02/16 19:00 07:00 Intake Total 460 ml 60 ml Balance 460 ml 60 ml Intake Oral 460 ml IV Total 60 ml # Voids 2 6 # Bowel Movements 1 Objective xr of knees reviewed General Appearance: WD/WN HEENT: normocephalic, atraumatic Respiratory/Chest: chest wall non-tender, lungs clear Cardiovascular: normal peripheral pulses, normal rate Abdomen: normal bowel sounds, no organomegaly Extremities: no cyanosis Skin: no rash 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 Current Medications Medications (Trade) Dose Ordered Sig/Leroy Route PRN Reason Start Time Stop Time Status Last Admin Dose Admin Acetaminophen (Tylenol) 650 mg Q4H PRN ORAL fever 09/28/16 03:45 10/28/16 03:44 09/29/16 17:34 Al Hydroxide/Mg Hydroxide (Mylanta II) 30 ml Q6H PRN ORAL dyspepsia 09/28/16 05:45 10/28/16 05:44 Albuterol/ Ipratropium (DuoNeb 0.5-3(2.5)mg/3ml) 3 ml Q4H PRN HHN Shortness of Breath 09/28/16 03:30 10/03/16 03:29 09/28/16 19:34 Dextrose STAT PRN IV Hypoglycemia 09/28/16 01:45 10/28/16 01:44 Diphenhydramine HCl (Benadryl) 25 mg Q6H PRN ORAL Itching/Pruritis 09/28/16 05:45 10/28/16 05:44 09/29/16 00:59 Epoetin Bassam (Procrit (for non ESRD use)) 10,000 units WED-WED-WED SUBQ 09/28/16 21:00 10/28/16 20:59 09/30/16 21:31 Insulin Aspart (NovoLOG) BEFORE MEALS AND HS SUBQ 09/28/16 06:30 10/28/16 06:29 10/01/16 21:00 Iron Sucrose/ Sodium Chloride (Venofer/Sodium Chloride) 60 ml @ 240 mls/hr BEDTIME IVPB 09/28/16 21:00 10/02/16 21:14 10/01/16 20:57 Morphine Sulfate (Morphine Sulfate) 2 mg Q4H PRN IVP severe Pain (Pain Scale 7-10) 09/28/16 03:45 10/05/16 03:44 10/01/16 19:10 Nitroglycerin (Ntg) 0.4 mg Q5M X 3 DOSES PRN SL Prn Chest Pain 09/28/16 00:15 10/28/16 00:14 Ondansetron HCl (Zofran) 4 mg Q6H PRN IVP Nausea & Vomiting 09/28/16 05:45 10/28/16 05:44 09/29/16 17:32 Pantoprazole (Protonix) 40 mg EVERY 12 HOURS IVP 09/28/16 09:00 10/28/16 08:59 10/02/16 08:42 Polyethylene Glycol (Miralax) 17 gm HSPRN PRN ORAL Constipation 09/28/16 23:45 10/28/16 23:44 10/01/16 19:10 Promethazine HCl/ Codeine (Phenergan with Codeine) 5 ml Q6H PRN ORAL For Cough 09/28/16 05:45 10/28/16 05:44 09/30/16 16:39 Temazepam (Restoril) 15 mg HSPRN PRN ORAL Insomnia 09/28/16 23:45 10/05/16 23:44 TERRANCE LLOYD Oct 02, 2016 15:06
[2016-10-02] MEDS ORDERED: Tubing IV Secondary IV ONE (15:29)
[2016-10-02] MEDS ORDERED: NS 275ml ONE (15:29)
--- NOTE | 2016-10-05 15:05 | Discharge Summary ---
Discharge Summary Hospital Course Date of Admission Sep 24, 2016 at 11:32 Date of Discharge Oct 02, 2016 at 15:30 Admitting Diagnosis GI BLEED HPI Macy Raines is a 81 year old female who was admitted on Sep 24, 2016 at 11: 32 for Gastrointestinal Bleed Hospital Course dc summary #[id number] Discharge Medications Continued Medications: Albuterol Sulfate* (Albuterol Sulfate Hhn*) 2.5 Mg/3 Ml Vial.neb 3 ML AD Q4H PRN for Shortness of Breath, EA Gabapentin* (Gabapentin*) 600 Mg Tablet 600 MG ORAL DAILY, TAB Pantoprazole* (Protonix*) 40 Mg Tablet.dr 40 MG ORAL DAILY, #30 TAB Phenazopyridine Hcl* (Pyridium*) 100 Mg Tablet 100 MG ORAL THREE TIMES A DAY for 5 Days, TAB Polyethylene Glycol 3350* (Miralax*) 17 Gm Powd.pack 17 GM ORAL HSPRN PRN for Constipation, #30 PACK Sucralfate* (Carafate*) 1 Gm Tablet 1 GM ORAL FOUR TIMES A DAY, TAB Discharge Condition Upon Discharge: stable Discharge Disposition Patient was discharged to Home (01) Discharge Diagnoses: Pratik (Jasmyn)Jessi NP Oct 05, 2016 15:05
--- NOTE | 2016-10-06 04:28 | Discharge Summary 2 SIG ---
DATE OF ADMISSION: 09/24/2016 DATE OF DISCHARGE: 10/02/2016 The patient was admitted under Dr. Strickland. REASON FOR ADMISSION: 81-year-old female, brought to the emergency room by her family. The patient had a known history of gastric ulcer. She had an endoscopy done two to three months ago. She was on PPI. She presented with alleged multiple episodes of blood emesis since last night. Daughter stated that she also vomited dark substance. She tried over the counter medications from pharmacy, however, no relief. She denied vomiting or coughing blood on the day of admission. She denied diarrhea, abdominal pain, fever, or chills. The patient denied chest pain, shortness of breath. No abdominal pain. No headache. No urinary complaints. In the emergency department, the patient had no fever, but had leukocytosis. Hemoglobin and hematocrit were stable. Urine analysis revealed evidence of urinary tract infection. The patient was started on empiric antibiotics. Mild hypokalemia was repleted. Chest x-ray was negative for any acute cardiopulmonary disease. EKG showed normal sinus rhythm. The patient was admitted initially on telemetry and kept NPO for further management. ADMITTING DIAGNOSES: 1. Upper gastrointestinal bleeding. 2. Urinary tract infection. 3. History of gastric ulcer. 4. Anemia. HOSPITAL COURSE: The patient was initially NPO, on telemetry, and started on the IV fluids. Hemoglobin and hematocrit were closely monitored. Coags were followed. The patient was empirically on treatment for urinary tract infection. Urine culture, not done, never provided by the patient or her daughter. Chest x-ray revealed cardiomegaly, but no acute cardiopulmonary disease. GI consult was requested. The patient undergone EGD on 09/25/2016. Biopsy of the esophageal lining showed no cancerous cells, no cytomegalovirus, and was negative for AE1/AE3. GI recommended PPI, reflux measures, monitor hemoglobin and hematocrit; bowel regimen instituted, GI also recommended colonoscopy on Wednesday. However, family including daughter, who is the durable power of research attorney, declined colonoscopy to be done as inpatient. They also declined blood transfusion, when hemoglobin dropped to 7.3. 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 She refused last couple of days to have blood draw, and the patient was treated symptomatically. Stool OB was positive. Again, primary medical doctor and GI both recommended to have colonoscopy while in the hospital, however, family adamantly declined that. Venous duplex of the bilateral lower extremities was negative. X-ray of both knees revealed severe osteopenia. Pain management provided. The patient was started on the diet, able to tolerate. No nausea. No vomiting. No diarrhea. No further coffee- ground emesis or melena. GI cleared the patient for discharge and recommended follow up with her primary doctor as outpatient for referral to colonoscopy. FINAL DIAGNOSES: 1. Upper gastrointestinal bleeding. 2. Status post esophagogastroduodenoscopy with findings of esophagitis. 3. Gastroesophageal reflux disease. 4. Hiatal hernia. 5. Diverticulosis. 6. Urinary tract infection. 7. History of gastric ulcer. 8. Anemia. DISCHARGE MEDICATIONS: See medication reconciliation list. DISCHARGE INSTRUCTIONS: The patient was discharged home with family. FOLLOWUP: Followup with the primary medical doctor. Recommended outpatient colonoscopy. Roberto Strickland M.D. I have been assigned to dictate discharge summary on this account and I was not involved in the patient's management. Jessi KeysWadsworth HospitalEric N.P. DR: JULIET JOB#: [id number] CC: [id number]
== END 2016-10-02 15:30 | disposition home or self-care (01) | DRG 378 ==
LOC: EDBD 10:33 → EDUNIT# 10:33 → EMR 11:12 → 2E 11:32 → EDBEDREQ 12:30 → 2E 09-26 10:23 → 4E 09-28 00:51
PROC: 0DB38ZX Excision of Lower Esophagus, Via Natural or Artificial Opening Endoscopic, Diagnostic (ICD-10-PCS; principal; 2016-09-25 10:32)
DX: K92.2 Gastrointestinal hemorrhage, unspecified (principal); N39.0 Urinary tract infection, site not specified; D64.9 Anemia, unspecified; K20.9 Esophagitis, unspecified; K21.9 Gastro-esophageal reflux disease without esophagitis; K44.9 Diaphragmatic hernia without obstruction or gangrene; K29.70 Gastritis, unspecified, without bleeding; Z88.8 Allergy status to other drugs, medicaments and biological substances; K57.90 Diverticulosis of intestine, part unspecified, without perforation or abscess without bleeding; R11.10 Vomiting, unspecified; Z53.1 Procedure and treatment not carried out because of patient's decision for reasons of belief and group pressure; E87.6 Hypokalemia
CPT/HCPCS: 36415; 71010; 80048; 80053; 81003; 82150; 82270; 82962; 83690; 83735; 84100; 84484; 85007; 85025; 85610; 85730; 86850; 86900; 86901; 86920; 87070; 87081; 87205; 93005; 93970; 94003; 94150; 94644; 94664; 94760; J1815; J2405; J7620